=== PATIENT | male | born 1965 | race Caucasian/White ===

== ENCOUNTER → 2019-10-22 08:49 | Outpatient (BNVA) | payer OTHER, SELFPAY | PROVIDERS: Family Provider Nurse Practitioner; PCP Nurse Practitioner; Visit Provider Nurse Practitioner Family | DX: E11.9 Type 2 diabetes mellitus without complications (principal); E03.9 Hypothyroidism, unspecified; E78.2 Mixed hyperlipidemia; I10 Essential (primary) hypertension; E78.5 Hyperlipidemia, unspecified | CPT/HCPCS: 80053; 80061; 83036; 84443; 85025 ==

== ENCOUNTER → 2020-04-25 16:31 | Outpatient (BNVA) | payer OTHER, SELFPAY | PROVIDERS: Family Provider Nurse Practitioner; PCP Nurse Practitioner; Visit Provider Nurse Practitioner Family | DX: Z11.59 Encounter for screening for other viral diseases (principal); J02.9 Acute pharyngitis, unspecified | CPT/HCPCS: 87071; 87635; 87880 ==

== ENCOUNTER 2020-04-28 11:31 | Emergency (ER) | payer OTHER, SELFPAY ==
[2020-04-28 11:42] VITALS: BP 137/89; PULSE 70; RESP 20; TEMP 37.1; O2SAT 92; BMI 35.9
--- NOTE | 2020-04-28 11:58 | XR_ITS ---
WS: [id number] Portable AP upright chest, 04/28/2020 Clinical Data: COVID+, hypoxia Comparison: None. Findings: There are patchy opacities throughout both lungs which may represent diffuse pneumonia. The heart is enlarged. The pulmonary vascularity is not increased. No pneumothorax is seen. No nodules, masses or effusions are present. XR/XR chest 1V portable [id number] Impression: 1. Diffuse patchy opacities which may represent diffuse pneumonia. 2. Cardiomegaly. 3. Recommend repeat chest x-ray in one to 2 days.
--- NOTE | 2020-04-28 12:12 | ED_ITS ---
HPI - SOB/Dyspnea General: Chief Complaint: Shortness of Breath/Dyspnea Stated Complaint: covid+/SOB Time Seen by Provider: 04/28/20 11:37 Source: patient Mode of arrival: ambulatory Limitations: no limitations History of Present Illness: MD elicited complaint: shortness of breath and cough Onset (ago): week(s) (1) Timing: constant and progressively worsening Severity: severe Exacerbating factors: nothing Relieving factors: nothing Associated symptoms: Reports chest congestion, cough, fever(s), myalgias and nausea; Deny chest pain, diaphoresis, dizziness, extremity pain, hemoptysis, lightheadedness, orthopnea, palpitations, paresthesias, polydipsia, polyuria, rash, sense of impending doom or syncope Treatment prior to arrival: none Review of Systems General: Reports: 10 or more systems reviewed and unremarkable except in HPI and below Const: Reports: fever(s); Denies: diaphoresis Eyes: Denies: change in vision or blurry vision ENMT: Denies: throat pain, enlarged tonsils, odynophagia, hoarseness, mouth pain or swelling of lips/tongue Card: Denies: chest pain, palpitations, lightheadedness, syncope or orthopnea Resp: Reports: chest congestion; Denies: hemoptysis GI: Reports: nausea : Denies: flank pain, dysuria, urinary frequency, urinary urgency or urinary hesitancy Musc: Denies: extremity pain Skin/Breast: Denies: rash, pruritus or erythema Neuro: Denies: dizziness Endo: Denies: polyuria or polydipsia PFS ED PFSH: Medical History Diabetes Hyperlipidemia Hypertension Hypothyroidism (acquired) Surgical History Hx of cholecystectomy 2006 Social History Smoking and tobacco status: never smoked Alcohol intake: never Lives independently: Yes Housing: House Marital status: Single History of recent travel: No Physical Exam Const: COMMON NORMALS: no acute distress, average body habitus, patient oriented x3, no limitations, healthy appearing, alert and well nourished Neck/C-Spine: COMMON NORMALS: no meningeal signs and no JVD Resp: COMMON NORMALS: No retractions and clear to auscultation bilaterally EFFORT & INSPECTION: Yes respiratory distress (mild) and Yes labored AUSCULTATION: clear to auscultation bilaterally Cardio: COMMON NORMALS: no JVD, regular rate, regular rhythm, S1 normal heart sound present, S2 normal heart sound present, No gallops present (Cardio), No clicks present (Cardio), No murmurs present (Cardio), No rub (Cardio) and Peripheral pulses 2+ throughout RATE: regular rate RHYTHM: regular rhythm HEART SOUNDS: S1 normal heart sound present and S2 normal heart sound present PERIPHERAL PULSES: Peripheral pulses 2+ throughout GI: COMMON NORMALS: Normal to inspection, nondistended, normoactive bowel sounds present, Soft to palpation, non-tender, No hepatosplenomegaly present, no masses and no bruits PALPATION: Yes Soft to palpation and Yes No hepatosplenomegaly present Extremity: COMMON NORMALS: normal to inspection, full ROM, capillary refill normal, no calf tenderness and no pedal edema Neuro: COMMON NORMALS: patient oriented x3 SENSORIUM/ORIENTATION: Yes alert MENINGEAL SIGNS: Yes no meningeal signs Skin: COMMON NORMALS: no rashes or lesions noted, no wounds, turgor normal, no jaundice, no petechiae and no mottling GENERAL SKIN EXAM: no rashes or lesions noted and turgor normal Course Reevaluation(s): Reevaluation #1: Discussed patient's lab and imaging findings with him. Discussed especially that he is hypoxic and therefore needs to be admitted to the hospital. Explained that our viral ICU is full and cannot take any more patients, same with the hospitals in [place]. The nearest hospital.contact COVID patient is in [place]. We will therefore transfer him there. He voiced understanding and is in agreement with the plan. He was given a loading dose of Remdesivir as well as intravenous dexamethasone in the emergency department before he leaves. Time: 14:20 Consultations: Consultation #1: Discussed with sheree Rebolledo spitalist at [facility]. He kindly accepted patient to his service. Time: 14:26 Vital Signs: Vital signs: Vital Signs Temperature 98.7 F 04/28/20 11:42 Pulse Rate 70 04/28/20 14:55 Respiratory Rate 20 H 04/28/20 14:55 Blood Pressure 152/98 04/28/20 14:55 Pulse Oximetry 94 04/28/20 14:55 MDM - SOB/Dyspnea MDM Narrative: Medical decision making narrative: Patient with pneumonia secondary to COVID-19. He also has acute respiratory failure and needs oxygen supplementation to maintain his saturations in the low 90s. Because he is hypoxic he is transferred to [facility] as that is the nearest facility that can admit COVID patients. He was given a dose of intravenous dexamethasone and a loading dose of Remdesivir. Medical Records: Attestation: I reviewed the patient's medical records. Lab Data: Attestation: I reviewed the patient's lab results. Labs: Lab Results 04/28/20 04/28/20 04/28/20 Range/Units 12:50 12:50 12:50 WBC 7.3 (4.0-10.0) 10^3/ uL RBC 5.49 H (4.1-5.3) 10^6/u L Hgb 15.8 (11.7-16.6) g/dL Hct 47.4 (42.0-52.0) % MCV 86.3 (80-94) fL MCH 28.8 (28.0-34.0) pg MCHC 33.3 (30.0-36.0) g/dL RDW 12.5 (12.1-15.1) % Plt Count 242 (130-400) 10^3/c mm MPV 9.4 (7.4-10.4) fL Neut % (Auto) 75.2 % Lymph % (Auto) 17.6 % [place] % (Auto) 6.4 % Eos % (Auto) 0.0 % Baso % (Auto) 0.3 % Neut # (Auto) 5.49 (1.8-7.7) 10^3/u L Lymph # (Auto) 1.3 (0.8-4.8) 10^3/u L [place] # (Auto) 0.5 (0.2-0.9) 10^3/u L Eos # (Auto) 0.0 (0.0-0.8) 10^3/u L Baso # (Auto) 0.0 (0.0-0.1) 10^3/u L Nucleated RBC % (a uto) 0 % Nucleated RBCs # 0.0 /100WBC PT 11.70 L (12.1-14.9) SECO NDS INR 0.84 (0.8-1.2) Fibrinogen 510 H (174-498) mg/dL D-Dimer 0.61 H (0-0.59) ug/mIFE U Sodium 134 L (136-145) mmol/L Potassium 4.3 (3.5-5.1) mmol/L Chloride 100 (98-107) mmol/L Carbon Dioxide 21 L (22-29) mmol/L Anion Gap 17.3 (5-19) BUN 16 (6-20) mg/dL Creatinine 0.9 (0.7-1.2) mg/dL GFR Calculation 87.6 L (90-130) mL/min Glucose 180 H (65-115) mg/dL Calculated Osmolal ity 284 L (285-295) mOsm/k g Lactic Acid (0.5-2.2) mmol/L Calcium 8.9 (8.5-10.5) mg/dL Ferritin 1604 H (30-400) ng/mL Total Bilirubin 0.3 (0.15-1.2) mg/dL AST 68 H (0-40) U/L ALT 82 H (0-41) U/L Alkaline Phosphata se 102 (40-130) IU/L C-Reactive Protein 90.0 H (0.0-4.9) mg/L NT-Pro-B Natriuret Pep 9 (0-125) pg/mL Total Protein 7.2 (6.6-8.7) g/dL Albumin 3.7 (3.5-5.2) g/dL Globulin 3.5 (1.3-4.6) g/dL 04/28/20 Range/Units 12:50 WBC (4.0-10.0) 10^3/ uL RBC (4.1-5.3) 10^6/u L Hgb (11.7-16.6) g/dL Hct (42.0-52.0) % MCV (80-94) fL MCH (28.0-34.0) pg MCHC (30.0-36.0) g/dL RDW (12.1-15.1) % Plt Count (130-400) 10^3/c mm MPV (7.4-10.4) fL Neut % (Auto) % Lymph % (Auto) % [place] % (Auto) % Eos % (Auto) % Baso % (Auto) % Neut # (Auto) (1.8-7.7) 10^3/u L Lymph # (Auto) (0.8-4.8) 10^3/u L [place] # (Auto) (0.2-0.9) 10^3/u L Eos # (Auto) (0.0-0.8) 10^3/u L Baso # (Auto) (0.0-0.1) 10^3/u L Nucleated RBC % (a uto) % Nucleated RBCs # /100WBC PT (12.1-14.9) SECO NDS INR (0.8-1.2) Fibrinogen (174-498) mg/dL D-Dimer (0-0.59) ug/mIFE U Sodium (136-145) mmol/L Potassium (3.5-5.1) mmol/L Chloride (98-107) mmol/L Carbon Dioxide (22-29) mmol/L Anion Gap (5-19) BUN (6-20) mg/dL Creatinine (0.7-1.2) mg/dL GFR Calculation (90-130) mL/min Glucose (65-115) mg/dL Calculated Osmolal ity (285-295) mOsm/k g Lactic Acid 2.0 (0.5-2.2) mmol/L Calcium (8.5-10.5) mg/dL Ferritin (30-400) ng/mL Total Bilirubin (0.15-1.2) mg/dL AST (0-40) U/L ALT (0-41) U/L Alkaline Phosphata se (40-130) IU/L C-Reactive Protein (0.0-4.9) mg/L NT-Pro-B Natriuret Pep (0-125) pg/mL Total Protein (6.6-8.7) g/dL Albumin (3.5-5.2) g/dL Globulin (1.3-4.6) g/dL Imaging Data^: CXR: Radiologist's impression: [facility] [address] [place] [address] XRay Report Signed Patient: Rocky Bui #: [id number] : 1965Acct#:[id number] Age/Sex: 55 / MADM Date: 04/28/20 Loc: ERRoom/Bed: Attending Dr: Ordering Provider/Ordering MD: Eusebio Bright MD, [facility] Date of Service: 04/28/20 Procedure(s): XR chest 1V portable [id number] Accession Number(s): [id number] Report Number: [id number] WS: [id number] Portable AP upright chest, 04/28/2020 Clinical Data: COVID+, hypoxia Comparison: None. Findings: There are patchy opacities throughout both lungs which may represent diffuse pneumonia. The heart is enlarged. The pulmonary vascularity is not increased. No pneumothorax is seen. No nodules, masses or effusions are present. XR/XR chest 1V portable [id number] Impression: 1. Diffuse patchy opacities which may represent diffuse pneumonia. 2. Cardiomegaly. 3. Recommend repeat chest x-ray in one to 2 days. Dictated By:Taisha Martines MD Signed By:Taisha Martines MDSigned Date/Time:04/28/20 1229 DD/ 1227 Discharge Plan Discharge Patient Disposition: Xfer Short-Term Hosp Clinical Impression: Pneumonia due to 2019 novel coronavirus, Acute hypoxemic respiratory failure Condition: Stable Discharge Orders: Transfer Out of Facility (Order); Ordered 04/28/20 Ordered By: Eusebio Bright Referrals: Ulysses Morataya FNP-C [Primary Care Provider] - Discharge Date/Time: 04/28/20 16:25 Coding Level of Care Code ED Carpet Installer Helper for Chg Fwd Exam Detailed
[2020-04-28] MEDS: dexamethasone 4 mg/mL INJ 6 MG IVP (12:45)
[2020-04-28 13:05] LABS: Basophils % 0.3 %; Hematocrit 47.4 % (42.0-52.0); Hemoglobin 15.8 g/dL (11.7-16.6); Lymphocytes # 1.3 10^3/uL (0.8-4.8); Lymphocytes % 17.6 %; Mean Corpuscular HGB Conc 33.3 g/dL (30.0-36.0); Mean Corpuscular Hemoglobin 28.8 pg (28.0-34.0); Mean Corpuscular Volume 86.3 fL (80-94); Mean Platelet Volume 9.4 fL (7.4-10.4); Monocytes # 0.5 10^3/uL (0.2-0.9); Monocytes % 6.4 %; Neutrophils # 5.49 10^3/uL (1.8-7.7); Neutrophils % 75.2 %; Nucleated Red Blood Cells % 0 %; Platelet Count 242 10^3/cmm (130-400); Red Blood Count 5.49 10^6/uL (4.1-5.3); Red Cell Distribution Width 12.5 % (12.1-15.1); White Blood Count 7.3 10^3/uL (4.0-10.0)
[2020-04-28 13:26] LABS: INR 0.84 (0.8-1.2)
[2020-04-28 13:27] LABS: Fibrinogen 510 mg/dL (174-498)
[2020-04-28 13:29] LABS: D Dimer 0.61 ug/mIFEU (0-0.59)
[2020-04-28 13:38] LABS: Alanine Aminotransferase 82 U/L (0-41); Albumin Level 3.7 g/dL (3.5-5.2); Alkaline Phosphatase 102 IU/L (40-130); Aspartate Amino Transferase 68 U/L (0-40); Blood Urea Nitrogen 16 mg/dL (6-20); Calcium 8.9 mg/dL (8.5-10.5); Carbon Dioxide 21 mmol/L (22-29); Chloride 100 mmol/L (98-107); Globulin 3.5 g/dL (1.3-4.6); Glomerular Filtration Rate 87.6 mL/min (90-130); Glucose 180 mg/dL (65-115); NT Pro B Type Natriuretic Pept 9 pg/mL (0-125); Osmolality Calculated 284 mOsm/kg (285-295); Sodium 134 mmol/L (136-145); Total Bilirubin 0.3 mg/dL (0.15-1.2); Total Protein 7.2 g/dL (6.6-8.7)
[2020-04-28 13:40] LABS: Anion Gap 17.3 (5-19); Potassium 4.3 mmol/L (3.5-5.1)
[2020-04-28 13:50] LABS: Ferritin 1604 ng/mL (30-400)
[2020-04-28 14:30] VITALS: BP 152/98; PULSE 70; RESP 20; O2SAT 91
[2020-04-28 14:55] VITALS: BP 152/98; PULSE 70; RESP 20; O2SAT 94
== END 2020-04-28 16:25 | disposition short-term general hospital (02) ==
PROVIDERS: Emergency Provider Family Medicine; PCP Nurse Practitioner
DX: U07.1 COVID-19 (principal); J12.89 Other viral pneumonia; J96.01 Acute respiratory failure with hypoxia; E11.9 Type 2 diabetes mellitus without complications; E78.5 Hyperlipidemia, unspecified; I10 Essential (primary) hypertension
CPT/HCPCS: 12345; 71045; 80053; 82728; 83605; 83880; 85025; 85378; 85384; 85610; 86140; 87040; 96365; 96375; 99282; 99285; J1100

== ENCOUNTER 2020-05-06 17:51 | Emergency (ER) | payer OTHER, SELFPAY ==
[2020-05-06 17:59] VITALS: BP 142/96; PULSE 72; RESP 18; TEMP 36.7; O2SAT 95; BMI 35.9
--- NOTE | 2020-05-06 18:32 | ED_ITS ---
HPI - Psych General: Chief Complaint: Psychiatric Symptoms Stated Complaint: PSYCH Time Seen by Provider: 05/06/20 18:29 History of Present Illness: HPI Narrative: 55y/o male presents after being discharged from the COVID unit at [facility] yesterday. He presents today essentially with no complaints. He states that his sister called an ambulance, although he is unsure why. He tells me where he is, the date, and time. He says that he is feeling much better than he was when he was in the hospital. He can tell me date, place, time, and situation. He knows who picked him up in the ambulance. He then tells me about his sister, who called the ambulance. He states that she was upset. He states that he had told her about his situation, and that she had met a friend of his from a lot of years back. He had also told her about NERHerb, and Addison whom he had met in a video game. He believes she is real, his sister did not believe she was real. He states this seemed to upset her. complaint: altered mental status and other Review of Systems Const: Denies: fever(s) or chills Eyes: Denies: change in vision ENMT: Denies: odynophagia, swelling of lips/tongue or sinus pain Card: Denies: chest pain, palpitations or irregular heart rhythm Resp: Denies: dyspnea, productive cough, non-productive cough or wheezing GI: Denies: abdominal pain, nausea or vomiting : Denies: difficulty urinating, dysuria or hematuria Musc: Denies: neck pain or joint warmth Skin/Breast: Denies: rash, pruritus or erythema Neuro: Denies: headache(s), dizziness, vertigo, confusion or seizure-like activity Psych: Denies: anxiety PFS ED PFSH: Medical History (Updated 05/06/20 @ 19:08 by Kevin Ko DO) Diabetes Hyperlipidemia Hypertension Hypothyroidism (acquired) Surgical History Hx of cholecystectomy 2006 Social History Smoking and tobacco status: never smoked Alcohol intake: never Lives independently: Yes Housing: House Marital status: Single History of recent travel: No Physical Exam Const: GENERAL APPEARANCE: well developed ORIENTATION/CONSCIOUSNESS: Yes oriented to person, Yes oriented to place and Yes oriented to time HENMT: COMMON NORMALS: normocephalic and external ears normal HEAD & SCALP: normocephalic FACE & SINUS: normal facial exam NOSE: No nasal discharge present EXTERNAL EAR: Yes external ears normal MOUTH: tongue normal TEETH & GINGIVA: no abnormal tooth and associated gingiva THROAT: posterior oropharynx normal; no peritonsillar mass Eye: COMMON NORMALS: Equal, round and reactive pupils present, EOMs intact bilaterally and conjunctivae normal EYELID: eyelids normal CONJUNCTIVA: Yes conjunctivae normal PUPIL: Yes Equal, round and reactive pupils present Neck/C-Spine: GENERAL: No tracheal deviation Chest: COMMONS NORMALS: normal inspection of the chest CHEST: No tenderness Resp: COMMON NORMALS: clear to auscultation bilaterally EFFORT & INSPECTION: No tachypneic, No respiratory distress, No retractions, No uses accessory muscles and No tracheal deviation AUSCULTATION: clear to auscultation bilaterally, no rhonchi, no wheezes and lung sounds not diminished Cardio: COMMON NORMALS: regular rate and regular rhythm RATE: regular rate RHYTHM: regular rhythm HEART SOUNDS: no murmurs PERIPHERAL PULSES: radial pulses present GI: INSPECTION: No abdominal distension AUSCULTATION: No Hyperactive bowel sounds present and No Hypoactive bowel sounds present PALPATION: No Guarding due to palpation present (GI) and No Rigid due to palpation PERCUSSION: no dullness to percussion and no tympanic to percussion Neuro: SENSORIUM/ORIENTATION: Yes oriented to person, Yes oriented to place and Yes oriented to time Psych: COMMON NORMALS: Normal thought process present, cooperative, normal affect and speech normal APPEARANCE: Yes grossly normal ATTITUDE: Yes calm and Yes engaged ACTIVITY/MOTOR BEHAVIOR: Yes appropriate eye contact SPEECH: Yes normal speech MOOD & AFFECT: Yes euthymic mood THOUGHT PROCESS: Normal thought process present THOUGHT CONTENT: Yes Hallucination(s) present auditory ATTENTION/CONCENTRATION: Yes attention grossly intact and Yes concentration grossly intact MEMORY/COGNITION: Yes memory grossly intact and Yes cognition grossly intact INSIGHT: Limited insight present (Psych) JUDGEMENT: Fair judgement present (Psych) Skin: COMMON NORMALS: no rashes or lesions noted GENERAL SKIN EXAM: no rashes or lesions noted MDM - Psych MDM Narrative: Medical decision making narrative: This patient essentially has a normal exam medically. He clearly has both hallucinations, and some delusional content. He however is not homicidal or suicidal he does not present a clear danger to himself at this point. After being examined, he asked the nursing staff if he could go. His nurse tried to convince him to stay, for potential treatment. He said that he would rather go home. The nurse urged him that if his symptoms became worse, or if he became concerned to return to the ER quickly. He signed an AGAINST MEDICAL ADVICE form and left. Discharge Plan Discharge Patient Disposition: Left Against Medical Advice Clinical Impression: Acute psychosis Condition: Stable Prescriptions: No Action levothyroxine 50 mcg capsule 50 mcg PO DAILY 30 Days Qty: 30 RF: 5 losartan 50 mg tablet 50 mg PO DAILY 30 Days Qty: 30 RF: 5 metformin 500 mg tablet extended release 24 hr 1,000 mg PO DAILY 30 Days Qty: 60 RF: 5 atorvastatin 20 mg tablet 20 mg PO DAILY 30 Days Qty: 30 RF: 5 Referrals: Ulysses Morataya FNP-C [Primary Care Provider] - Discharge Date/Time: 05/06/20 19:09 Coding Level of Care Code ED Software Test Analyst for Kavin Cruz
--- NOTE | 2020-05-06 19:04 | PC.NURSE ---
Pt attempted to leave and said he wanted to go home. Dr Ko notified pt has GCS of 15 and and A&O x4. Pt was given AMA form to sign and advised that he needed to stay for evaluation. Pt states he is going home that he will come back if he feels worse or his thought process changes.
[2020-05-06 19:07] VITALS: RESP 18; O2SAT 98
== END 2020-05-06 19:09 | disposition left against medical advice (07) ==
PROVIDERS: Emergency Provider Emergency Medicine; PCP Nurse Practitioner
DX: F23 Brief psychotic disorder (principal); Z53.21 Procedure and treatment not carried out due to patient leaving prior to being seen by health care provider; E11.9 Type 2 diabetes mellitus without complications; I10 Essential (primary) hypertension; E78.5 Hyperlipidemia, unspecified; Z79.84 Long term (current) use of oral hypoglycemic drugs
CPT/HCPCS: 12345; 99284

== ENCOUNTER 2020-05-07 09:18 | Emergency (ER) | payer OTHER, SELFPAY ==
[2020-05-07 09:21] VITALS: BP 156/96; PULSE 92; RESP 18; TEMP 36.7; O2SAT 93; BMI 35.9
--- NOTE | 2020-05-07 09:40 | XRR_ITS ---
PROCEDURE INFORMATION: Exam: XR Chest, 1 View Exam date and time: 05/07/2020 9:41 AM Age: 55 years old Clinical indication: Shortness of breath; Additional info: Recent covid TECHNIQUE: Imaging protocol: XR of the chest Views: 1 view. COMPARISON: CR XR chest 1V portable [id number] 04/28/2020 12:20 PM FINDINGS: Lungs: Low lung volumes. Diffusely increased interstitial markings, but with overall improved aeration in comparison to April 28. No focal consolidation. Pleural space: Unremarkable. No evidence of pleural effusion or pneumothorax. Heart/Mediastinum: Unremarkable. No cardiomegaly. Bones/joints: Unremarkable. XR/XR chest 1V portable [id number] IMPRESSION: Nonspecific mild diffuse increased interstitial markings, but with overall improvement in comparison to April 28. No lobar consolidation.
--- NOTE | 2020-05-07 09:40 | CTR_ITS ---
PROCEDURE INFORMATION: Exam: CT Head Without Contrast Exam date and time: 05/07/2020 9:41 AM Age: 55 years old Clinical indication: Altered mental status/memory loss TECHNIQUE: Imaging protocol: Computed tomography of the head without contrast. Radiation optimization: All CT scans at this facility use at least one of these dose optimization techniques: automated exposure control; mA and/or kV adjustment per patient size (includes targeted exams where dose is matched to clinical indication); or iterative reconstruction. COMPARISON: No relevant prior studies available. RADIATION DOSE METRICS: Total DLP (mGy-cm): 790.1 FINDINGS: Brain: No intracranial hemorrhage. Normal osborne white differentiation. No evidence of edema or territorial infarct. No abnormal mass effect or midline shift. No extra-axial fluid collection. Cerebral ventricles: No ventriculomegaly. Bones/joints: No acute fracture. Paranasal sinuses: Visualized sinuses are unremarkable. No fluid levels. Mastoid air cells: Visualized mastoid air cells are well aerated. Soft tissues: Unremarkable. CT/CT head wo con* [id number] IMPRESSION: No acute intracranial abnormality. Radiation Dose CTDIVOL = (mGy): DLP = 790.1 (mGy-cm)
--- NOTE | 2020-05-07 09:45 | W.ED.PSYCH ---
HPI - Psych General: Chief Complaint: Psychiatric Symptoms Stated Complaint: INCOHERENT Time Seen by Provider: 05/07/20 09:32 Source: patient and family Mode of arrival: ambulatory Limitations: no limitations History of Present Illness: HPI Narrative: 55-year-old male patient presents to the emergency department with sister. Sister states patient started acting weird not making sense saying that he wants to hurt himself thought process is all over the place. Patient states he has never been like this before does not have any past medical history of behavioral health issues. Patient does not take any medications for any behavioral health issues. Patient states patient was released from [facility] was in there for a week on oxygen due to COVID. Sister states while patient was there he was also diabetic diagnosed with diabetes. Whenever I ask questions to patient he just says nope nope nope Associated symptoms: Deny delusions Review of Systems General: Reports: 10 or more systems reviewed and unremarkable except in HPI and below, ROS unobtainable due to medical condition and ROS unobtainable due to mental status PFS ED PFSH: Medical History Diabetes Hyperlipidemia Hypertension Hypothyroidism (acquired) Surgical History Hx of cholecystectomy 2006 Social History Smoking and tobacco status: never smoked Alcohol intake: never Lives independently: Yes Housing: House Marital status: Single History of recent travel: No Physical Exam Const: COMMON NORMALS: no acute distress, average body habitus, alert and well nourished EXAM LIMITATIONS: altered mental status and behavioral limitations ORIENTATION/CONSCIOUSNESS: Yes confused HENMT: COMMON NORMALS: normocephalic, atraumatic, hearing grossly normal bilaterally, external ears normal, EAC's normal, TM's normal bilaterally, Normal external nose present, Normal nasal mucous membranes and turbinates present, moist oral mucous membranes, oropharynx normal, dentition normal and gingiva normal HEAD & SCALP: normocephalic and atraumatic NOSE: Normal external nose present and Normal nasal mucous membranes and turbinates present EXTERNAL EAR: Yes external ears normal EXTERNAL AUDITORY CANAL: EAC's normal TYMPANIC MEMBRANE: TM's normal bilaterally Eye: COMMON NORMALS: Equal, round and reactive pupils present, EOMs intact bilaterally, conjunctivae normal, no scleral icterus, no papilledema, normal visual buitrago by confrontation and fundi normal bilaterally CONJUNCTIVA: Yes conjunctivae normal PUPIL: Yes Equal, round and reactive pupils present DIRECT OPHTHALMOSCOPY: Yes no papilledema and Yes fundi normal bilaterally Neck/C-Spine: COMMON NORMALS: full ROM, no lymphadenopathy, supple, no meningeal signs, no JVD, Thyroid normal and No carotid bruits THYROID: Thyroid normal Chest: COMMONS NORMALS: normal inspection of the chest, normal palpation of entire chest wall, normal inspection of the breasts and normal palpation of the breasts Resp: COMMON NORMALS: normal respiratory effort, No retractions, No use of accessory muscles, clear to auscultation bilaterally and percussion normal AUSCULTATION: clear to auscultation bilaterally and diminished lung sounds PERCUSSION: percussion normal Cardio: COMMON NORMALS: no JVD, regular rate and regular rhythm RATE: regular rate RHYTHM: regular rhythm GI: COMMON NORMALS: Normal to inspection, nondistended, normoactive bowel sounds present, Soft to palpation, non-tender, No hepatosplenomegaly present, no masses and no bruits PALPATION: Yes Soft to palpation and Yes No hepatosplenomegaly present : COMMON NORMALS: Yes no CVA tenderness BLADDER/KIDNEY EXAM: Yes no CVA tenderness Back/Pelvis: COMMON NORMALS: no CVA tenderness, thoracic and lumbar spine normal to inspection, no thoracic nor lumbar tenderness, thoraco-lumbar ROM normal and straight leg raise negative bilaterally Extremity: COMMON NORMALS: normal to inspection, full ROM, capillary refill normal, no joint enlargement, no clubbing, cyanosis or edema, no calf tenderness and no pedal edema Neuro: COMMON NORMALS: CN's II-XII intact bilaterally, moves all extremities, no focal motor deficits and no sensory deficits noted SENSORIUM/ORIENTATION: Yes alert and Yes Orientation impaired MENINGEAL SIGNS: Yes no meningeal signs Psych: COMMON NORMALS: cooperative and speech normal; negative for Normal thought process present, negative for normal affect and negative for denies suicidal ideation ATTITUDE: Yes bizarre and Yes agitated ACTIVITY/MOTOR BEHAVIOR: No appropriate eye contact, Yes disorganized behavior and Yes Avoids eye contact (attititude/behavior) SPEECH: Yes normal speech and Yes slow MOOD & AFFECT: Yes elevated mood THOUGHT PROCESS: abnormal, disorganized, confused, Flight of ideas present, Illogical thought process present and Word salad present (speech) THOUGHT CONTENT: No Normal thought content present, Yes Suicidality present, No Homicidality present, No Phobia(s) present, No delusions and No Hallucination(s) present INSIGHT: questionable JUDGEMENT: questionable MDM - Psych MDM Narrative: Medical decision making narrative: 55-year-old male patient presents to the emergency department with sister. Sister states patient started acting weird not making sense saying that he wants to hurt himself thought process is all over the place. Patient states he has never been like this before does not have any past medical history of behavioral health issues. Patient does not take any medications for any behavioral health issues. Patient states patient was released from [facility] was in there for a week on oxygen due to COVID. Sister states while patient was there he was also diabetic diagnosed with diabetes. Whenever I ask questions to patient he just says nope nope nope Pt presents confused and saying things that dont make sense. Does not answer my questions. Ct head negative for any acute findings CAT chest reveals bilateral lower lobe infiltrates. Pt pulse ox is 91-93 on RA lungs are diminished lower bases elevated WBC. Given these findings I will start him on antibiotics at this time. Pt does have an elevated lactic acid. I will plan on admitting patient to medical at this time with a consult to psych Differential Diagnosis: Psych Differential Diagnosis: Likely acute psychosis, chronic schizophrenia, suicidal ideation, depression and drug-induced psychotic disorder Lab Data: Labs: Lab Results 05/07/20 05/07/20 05/07/20 Range/Units 09:54 09:54 09:54 WBC 14.7 H (4.0-10.0) 10^3/ uL RBC 5.73 H (4.1-5.3) 10^6/u L Hgb 16.2 (11.7-16.6) g/dL Hct 49.0 (42.0-52.0) % MCV 85.5 (80-94) fL MCH 28.3 (28.0-34.0) pg MCHC 33.1 (30.0-36.0) g/dL RDW 12.4 (12.1-15.1) % Plt Count 441 H (130-400) 10^3/c mm MPV 8.8 (7.4-10.4) fL Neut % (Auto) 69.5 % Lymph % (Auto) 15.4 % [place] % (Auto) 8.5 % Eos % (Auto) 0.4 % Baso % (Auto) 0.3 % Neut # (Auto) 10.19 H (1.8-7.7) 10^3/u L Lymph # (Auto) 2.3 (0.8-4.8) 10^3/u L [place] # (Auto) 1.2 H (0.2-0.9) 10^3/u L Eos # (Auto) 0.1 (0.0-0.8) 10^3/u L Baso # (Auto) 0.0 (0.0-0.1) 10^3/u L Nucleated RBC % (a uto) 0 % Nucleated RBCs # 0.0 /100WBC ESR 5 (0-10) mm/hr Sodium 133 L (136-145) mmol/L Potassium 4.2 (3.5-5.1) mmol/L Chloride 100 (98-107) mmol/L Carbon Dioxide 23 (22-29) mmol/L Anion Gap 14.2 (5-19) BUN 27 H (6-20) mg/dL Creatinine 1.0 (0.7-1.2) mg/dL GFR Calculation 77.6 L (90-130) mL/min Glucose 174 H (65-115) mg/dL Calculated Osmolal ity 285 (285-295) mOsm/k g Lactate (0.5-2.2) mmol/L Calcium 9.2 (8.5-10.5) mg/dL Ferritin (30-400) ng/mL Total Bilirubin 0.6 (0.15-1.2) mg/dL AST 34 (0-40) U/L ALT 92 H (0-41) U/L Alkaline Phosphata se 113 (40-130) IU/L Lactate Dehydrogen ase (135-225) U/L C-Reactive Protein (0.0-4.9) mg/L Total Protein 6.4 L (6.6-8.7) g/dL Albumin 3.7 (3.5-5.2) g/dL Globulin 2.7 (1.3-4.6) g/dL Urine Color (Yellow) Urine Appearance (CLEAR) Urine pH (5-7) Ur Specific Gravit y (1.005-1.030) Urine Protein (Negative) Urine Glucose (UA) (Normal) Urine Ketones (Negative) Urine Blood (Negative) Urine Nitrate (Negative) Urine Bilirubin (Negative) Urine Urobilinogen (Negative) mg/dL Ur Leukocyte Marielos ase (Negative) Salicylates < 0.3 L (3-10) mg/dL Urine Opiates Scre en (Negative) ng/mL Acetaminophen < 5.0 L (10-30) ug/mL Ur Barbiturates Sc reen (Negative) ng/mL Ur Phencyclidine S crn (Negative) ng/mL Ur Amphetamines Sc reen (Negative) ng/mL U Benzodiazepines Scrn (Negative) ng/mL Urine Cocaine Scre en (Negative) ng/mL U Marijuana (THC) Screen (Negative) ng/mL Ethyl Alcohol < 10 (0-10) mg/dL 05/07/20 05/07/20 05/07/20 Range/Units 09:54 10:32 10:32 WBC (4.0-10.0) 10^3/ uL RBC (4.1-5.3) 10^6/u L Hgb (11.7-16.6) g/dL Hct (42.0-52.0) % MCV (80-94) fL MCH (28.0-34.0) pg MCHC (30.0-36.0) g/dL RDW (12.1-15.1) % Plt Count (130-400) 10^3/c mm MPV (7.4-10.4) fL Neut % (Auto) % Lymph % (Auto) % [place] % (Auto) % Eos % (Auto) % Baso % (Auto) % Neut # (Auto) (1.8-7.7) 10^3/u L Lymph # (Auto) (0.8-4.8) 10^3/u L [place] # (Auto) (0.2-0.9) 10^3/u L Eos # (Auto) (0.0-0.8) 10^3/u L Baso # (Auto) (0.0-0.1) 10^3/u L Nucleated RBC % (a uto) % Nucleated RBCs # /100WBC ESR (0-10) mm/hr Sodium (136-145) mmol/L Potassium (3.5-5.1) mmol/L Chloride (98-107) mmol/L Carbon Dioxide (22-29) mmol/L Anion Gap (5-19) BUN (6-20) mg/dL Creatinine (0.7-1.2) mg/dL GFR Calculation (90-130) mL/min Glucose (65-115) mg/dL Calculated Osmolal ity (285-295) mOsm/k g Lactate (0.5-2.2) mmol/L Calcium (8.5-10.5) mg/dL Ferritin 1362 H (30-400) ng/mL Total Bilirubin (0.15-1.2) mg/dL AST (0-40) U/L ALT (0-41) U/L Alkaline Phosphata se (40-130) IU/L Lactate Dehydrogen ase 313 H (135-225) U/L C-Reactive Protein 1.4 (0.0-4.9) mg/L Total Protein (6.6-8.7) g/dL Albumin (3.5-5.2) g/dL Globulin (1.3-4.6) g/dL Urine Color Yellow (Yellow) Urine Appearance Clear (CLEAR) Urine pH 5 (5-7) Ur Specific Gravit y 1.025 (1.005-1.030) Urine Protein Neg (Negative) Urine Glucose (UA) Norm (Normal) Urine Ketones Negative (Negative) Urine Blood Neg (Negative) Urine Nitrate Negative (Negative) Urine Bilirubin Neg (Negative) Urine Urobilinogen Norm (Negative) mg/dL Ur Leukocyte Marielos ase Negative (Negative) Salicylates (3-10) mg/dL Urine Opiates Scre en Negative (Negative) ng/mL Acetaminophen (10-30) ug/mL Ur Barbiturates Sc reen Negative (Negative) ng/mL Ur Phencyclidine S crn Negative (Negative) ng/mL Ur Amphetamines Sc reen Negative (Negative) ng/mL U Benzodiazepines Scrn Negative (Negative) ng/mL Urine Cocaine Scre en Negative (Negative) ng/mL U Marijuana (THC) Screen Negative (Negative) ng/mL Ethyl Alcohol (0-10) mg/dL 05/07/20 Range/Units 10:52 WBC (4.0-10.0) 10^3/ uL RBC (4.1-5.3) 10^6/u L Hgb (11.7-16.6) g/dL Hct (42.0-52.0) % MCV (80-94) fL MCH (28.0-34.0) pg MCHC (30.0-36.0) g/dL RDW (12.1-15.1) % Plt Count (130-400) 10^3/c mm MPV (7.4-10.4) fL Neut % (Auto) % Lymph % (Auto) % [place] % (Auto) % Eos % (Auto) % Baso % (Auto) % Neut # (Auto) (1.8-7.7) 10^3/u L Lymph # (Auto) (0.8-4.8) 10^3/u L [place] # (Auto) (0.2-0.9) 10^3/u L Eos # (Auto) (0.0-0.8) 10^3/u L Baso # (Auto) (0.0-0.1) 10^3/u L Nucleated RBC % (a uto) % Nucleated RBCs # /100WBC ESR (0-10) mm/hr Sodium (136-145) mmol/L Potassium (3.5-5.1) mmol/L Chloride (98-107) mmol/L Carbon Dioxide (22-29) mmol/L Anion Gap (5-19) BUN (6-20) mg/dL Creatinine (0.7-1.2) mg/dL GFR Calculation (90-130) mL/min Glucose (65-115) mg/dL Calculated Osmolal ity (285-295) mOsm/k g Lactate 2.4 H (0.5-2.2) mmol/L Calcium (8.5-10.5) mg/dL Ferritin (30-400) ng/mL Total Bilirubin (0.15-1.2) mg/dL AST (0-40) U/L ALT (0-41) U/L Alkaline Phosphata se (40-130) IU/L Lactate Dehydrogen ase (135-225) U/L C-Reactive Protein (0.0-4.9) mg/L Total Protein (6.6-8.7) g/dL Albumin (3.5-5.2) g/dL Globulin (1.3-4.6) g/dL Urine Color (Yellow) Urine Appearance (CLEAR) Urine pH (5-7) Ur Specific Gravit y (1.005-1.030) Urine Protein (Negative) Urine Glucose (UA) (Normal) Urine Ketones (Negative) Urine Blood (Negative) Urine Nitrate (Negative) Urine Bilirubin (Negative) Urine Urobilinogen (Negative) mg/dL Ur Leukocyte Marielos ase (Negative) Salicylates (3-10) mg/dL Urine Opiates Scre en (Negative) ng/mL Acetaminophen (10-30) ug/mL Ur Barbiturates Sc reen (Negative) ng/mL Ur Phencyclidine S crn (Negative) ng/mL Ur Amphetamines Sc reen (Negative) ng/mL U Benzodiazepines Scrn (Negative) ng/mL Urine Cocaine Scre en (Negative) ng/mL U Marijuana (THC) Screen (Negative) ng/mL Ethyl Alcohol (0-10) mg/dL Discharge Plan Discharge Prescriptions: No Action levothyroxine 50 mcg capsule 50 mcg PO DAILY 30 Days Qty: 30 RF: 5 losartan 50 mg tablet 50 mg PO DAILY 30 Days Qty: 30 RF: 5 metformin 500 mg tablet extended release 24 hr 1,000 mg PO DAILY 30 Days Qty: 60 RF: 5 atorvastatin 20 mg tablet 20 mg PO DAILY 30 Days Qty: 30 RF: 5 acetaminophen 500 mg tablet 500 mg PO Q6H PRN (Reason: PAIN/FEVER) RF: 0 dexamethasone 4 mg tablet 4 mg PO DAILY RF: 0 ClearLax 17 gram/dose powder See Rx Instructions .ROUTE .COMPLEX RF: 0 albuterol sulfate 90 mcg/actuation HFA aerosol inhaler 2 puff INHALATION Q1H RF: 0 fluticasone propionate 50 mcg/actuation spray,suspension See Rx Instructions .ROUTE .COMPLEX RF: 0 Levemir U-100 Insulin 100 unit/mL solution See Rx Instructions .ROUTE .COMPLEX RF: 0 Mucinex 600 mg tablet extended release 12hr 600 mg PO BID RF: 0 Coding Level of Care Code ED Safety Leader for Kavin Cruz
[2020-05-07 10:04] LABS: Basophils % 0.3 %; Eosinophils # 0.1 10^3/uL (0.0-0.8); Eosinophils % 0.4 %; Hemoglobin 16.2 g/dL (11.7-16.6); Lymphocytes # 2.3 10^3/uL (0.8-4.8); Lymphocytes % 15.4 %; Mean Corpuscular HGB Conc 33.1 g/dL (30.0-36.0); Mean Corpuscular Hemoglobin 28.3 pg (28.0-34.0); Mean Corpuscular Volume 85.5 fL (80-94); Mean Platelet Volume 8.8 fL (7.4-10.4); Monocytes # 1.2 10^3/uL (0.2-0.9); Monocytes % 8.5 %; Neutrophils # 10.19 10^3/uL (1.8-7.7); Neutrophils % 69.5 %; Nucleated Red Blood Cells % 0 %; Platelet Count 441 10^3/cmm (130-400); Red Blood Count 5.73 10^6/uL (4.1-5.3); Red Cell Distribution Width 12.4 % (12.1-15.1); White Blood Count 14.7 10^3/uL (4.0-10.0)
[2020-05-07 10:28] LABS: Slide Review Slide Review Perform
[2020-05-07 10:29] LABS: Alanine Aminotransferase 92 U/L (0-41); Albumin Level 3.7 g/dL (3.5-5.2); Alkaline Phosphatase 113 IU/L (40-130); Anion Gap 14.2 (5-19); Aspartate Amino Transferase 34 U/L (0-40); Blood Urea Nitrogen 27 mg/dL (6-20); Calcium 9.2 mg/dL (8.5-10.5); Carbon Dioxide 23 mmol/L (22-29); Chloride 100 mmol/L (98-107); Globulin 2.7 g/dL (1.3-4.6); Glomerular Filtration Rate 77.6 mL/min (90-130); Glucose 174 mg/dL (65-115); Osmolality Calculated 285 mOsm/kg (285-295); Potassium 4.2 mmol/L (3.5-5.1); Sodium 133 mmol/L (136-145); Total Bilirubin 0.6 mg/dL (0.15-1.2); Total Protein 6.4 g/dL (6.6-8.7)
[2020-05-07 10:30] LABS: Acetaminophen < 5.0 ug/mL (10-30); Alcohol Level < 10 mg/dL (0-10); Salicylate < 0.3 mg/dL (3-10)
[2020-05-07 10:39] LABS: Add Urine Microscopic? NO
[2020-05-07 10:47] LABS: Bilirubin Urine Neg (Negative); Blood Urine Neg (Negative); Glucose Urine UA Norm (Normal); Ketones Urine Negative (Negative); Leukocyte Esterase Urine Negative (Negative); Nitrate Urine Negative (Negative); Protein Urine Neg (Negative); Specific Gravity, Urine 1.025 (1.005-1.030); Urine Appearance Clear (CLEAR); Urine Color Yellow (Yellow); Urobilinogen Urine Norm (Negative); pH Urine 5 (5-7)
[2020-05-07 10:58] LABS: Amphetamines Screen Urine Negative (Negative); Barbiturates Screen Urine Negative (Negative); Benzodiazepines Screen Urine Negative (Negative); Cocaine Screen Urine Negative (Negative); Opiate Screen Urine Negative (Negative); PCP Screen Urine Negative (Negative); THC Screen Urine Negative (Negative)
[2020-05-07] MEDS: LORazepam 2 mg/mL INJ 1 mL IM (11:19)
[2020-05-07 11:23] LABS: Lactate (Lactic Acid level) 2.4 mmol/L (0.5-2.2)
--- NOTE | 2020-05-07 11:39 | CTR_ITS ---
PROCEDURE INFORMATION: Exam: CT Angiography Chest With Contrast Exam date and time: 05/07/2020 12:21 PM Age: 55 years old Clinical indication: Shortness of breath; Patient HX: C/O SOB recent admission for covid TECHNIQUE: Imaging protocol: Computed tomographic angiography of the chest with intravenous contrast. 3D rendering (Not supervised by radiologist): MIP and/or 3D reconstructed images were created by the technologist. Radiation optimization: All CT scans at this facility use at least one of these dose optimization techniques: automated exposure control; mA and/or kV adjustment per patient size (includes targeted exams where dose is matched to clinical indication); or iterative reconstruction. Contrast material: OMNI 350; Contrast volume: 95 ml; Contrast route: INTRAVENOUS (IV); COMPARISON: CR (CHEST, ) 05/07/2020 10:04 AM RADIATION DOSE METRICS: Total DLP (mGy-cm): 562.79 FINDINGS: Pulmonary arteries: Normal. No pulmonary emboli. Aorta: Unremarkable. No aortic aneurysm. No aortic dissection. Lungs: Multifocal patchy parenchymal infiltrates consistent with atypical pneumonia. 9 mm rounded lesion in the right upper lobe series 2, image 205. Pleural space: Unremarkable. No pneumothorax. No pleural effusion. Heart: Unremarkable. No cardiomegaly. No pericardial effusion. Lymph nodes: There are subcentimeter mediastinal and perihilar lymph nodes. Bones/joints: Unremarkable. No acute fracture. Soft tissues: Unremarkable. CT/CT angio chest PE protcl [id number] IMPRESSION: 1. Bilateral atypical pneumonia. 2. There is a 9 mm noncalcified rounded lesion in the right upper lobe.For both low risk and high risk patients, consider CT Chest at 3 months, PET/CT, or biopsy. (Reference: Sinan) REFERENCES: Sinan Cornejo et al. Guidelines for Management of Incidental Pulmonary Nodules Detected on CT Images: From the Fleischner Society 2017. Radiology. 2017;284(1):228-243. Radiation Dose CTDIVOL = (mGy): DLP = 562.79 (mGy-cm)
[2020-05-07 11:59] LABS: ABG PH Result 7.46 (7.35-7.45); Alveolar-Arterial Oxygen Gradi 6.2 mmHg (5-10); Arterial Blood Gas Hematocrit 50.8 % (42-52); Base Excess ABG -0.3 mmol/L (-2.0-2.0); Blood Gas Allen Test Pos; Blood Gas Sample Type Arterial; Carboxyhemoglobin 0.9 %THgb (0.4-20.1); HCO3 ABG 22.6 mmol/L (22-26); HGB O2 Sat 92.9 % (95-100); Ionized Calcium Level - ABG 1.2 mmol/L (1.1-1.4); Methemoglobin 0.8 % (0.4-1.5); Oxygen Saturation ABG 94.5; PO2 ABG 62.8 mmHg (80.0-100.0); Total Hemoglobin 16.6 g/dL (14-18)
[2020-05-07 12:00] LABS: Blood Gas Operator Identificat ED; Blood Gas Sample Site Radial, left; Oxygen Device ROOM AIR
[2020-05-07 12:30] LABS: C Reactive Protein 1.4 mg/L (0.0-4.9)
[2020-05-07 12:49] LABS: Ferritin 1362 ng/mL (30-400)
[2020-05-07 12:50] LABS: Lactate Dehydrogenase 313 U/L (135-225)
[2020-05-07] MEDS: iohexol 350 mg/mL 100 mL Btl IV (13:34)
[2020-05-07 14:03] LABS: Erythrocyte Sedimentation Rate 5 mm/hr (0-10)
[2020-05-07] MEDS: cefTRIAXone 1,000 MG in sodium chloride 0.9% (plus) 50 ML 100 MG IV (14:49)
[2020-05-07] MEDS: azithromycin 500 MG in sodium chloride 0.9% 250 ML 250 MG IV (15:41)
[2020-05-07 15:58] VITALS: BP 148/88; PULSE 88; RESP 18; O2SAT 94
--- NOTE | 2020-05-07 15:59 | ED_ITS ---
HPI - Psych General: Chief Complaint: Psychiatric Symptoms Stated Complaint: INCOHERENT Time Seen by Provider: 05/07/20 09:32 Source: patient and family Mode of arrival: ambulatory History of Present Illness: HPI Narrative: [facility] ED PFSH: Medical History Diabetes Hyperlipidemia Hypertension Hypothyroidism (acquired) Surgical History Hx of cholecystectomy 2006 Social History Smoking and tobacco status: never smoked Alcohol intake: never Lives independently: Yes Housing: House Marital status: Single History of recent travel: No MDM - Psych Lab Data: Labs: Lab Results 05/07/20 05/07/20 05/07/20 Range/Units 09:54 09:54 09:54 WBC 14.7 H (4.0-10.0) 10^3/ uL RBC 5.73 H (4.1-5.3) 10^6/u L Hgb 16.2 (11.7-16.6) g/dL Hct 49.0 (42.0-52.0) % MCV 85.5 (80-94) fL MCH 28.3 (28.0-34.0) pg MCHC 33.1 (30.0-36.0) g/dL RDW 12.4 (12.1-15.1) % Plt Count 441 H (130-400) 10^3/c mm MPV 8.8 (7.4-10.4) fL Neut % (Auto) 69.5 % Lymph % (Auto) 15.4 % [place] % (Auto) 8.5 % Eos % (Auto) 0.4 % Baso % (Auto) 0.3 % Neut # (Auto) 10.19 H (1.8-7.7) 10^3/u L Lymph # (Auto) 2.3 (0.8-4.8) 10^3/u L [place] # (Auto) 1.2 H (0.2-0.9) 10^3/u L Eos # (Auto) 0.1 (0.0-0.8) 10^3/u L Baso # (Auto) 0.0 (0.0-0.1) 10^3/u L Nucleated RBC % (a uto) 0 % Nucleated RBCs # 0.0 /100WBC ESR 5 (0-10) mm/hr Specimen Type Sample Site ABG pH (7.35-7.45) ABG pCO2 (35-45) mmHg ABG pO2 (80.0-100.0) mmH g ABG HCO3 (22-26) mmol/L ABG O2 Saturation ABG Base Excess (-2.0-2.0) mmol/ L Roel Test A-a O2 Gradient (5-10) mmHg Hematocrit (42-52) % Hgb O2 Saturation (95-100) % Carboxyhemoglobin (0.4-20.1) %THgb Methemoglobin (0.4-1.5) % Total Hemoglobin (14-18) g/dL Ionized Calcium (1.1-1.4) mmol/L O2 Delivery Device FiO2 % Planning Associate ID Sodium 133 L (136-145) mmol/L Potassium 4.2 (3.5-5.1) mmol/L Chloride 100 (98-107) mmol/L Carbon Dioxide 23 (22-29) mmol/L Anion Gap 14.2 (5-19) BUN 27 H (6-20) mg/dL Creatinine 1.0 (0.7-1.2) mg/dL GFR Calculation 77.6 L (90-130) mL/min Glucose 174 H (65-115) mg/dL Calculated Osmolal ity 285 (285-295) mOsm/k g Lactate (0.5-2.2) mmol/L Calcium 9.2 (8.5-10.5) mg/dL Ferritin (30-400) ng/mL Total Bilirubin 0.6 (0.15-1.2) mg/dL AST 34 (0-40) U/L ALT 92 H (0-41) U/L Alkaline Phosphata se 113 (40-130) IU/L Lactate Dehydrogen ase (135-225) U/L C-Reactive Protein (0.0-4.9) mg/L Total Protein 6.4 L (6.6-8.7) g/dL Albumin 3.7 (3.5-5.2) g/dL Globulin 2.7 (1.3-4.6) g/dL Urine Color (Yellow) Urine Appearance (CLEAR) Urine pH (5-7) Ur Specific Gravit y (1.005-1.030) Urine Protein (Negative) Urine Glucose (UA) (Normal) Urine Ketones (Negative) Urine Blood (Negative) Urine Nitrate (Negative) Urine Bilirubin (Negative) Urine Urobilinogen (Negative) mg/dL Ur Leukocyte Marielos ase (Negative) Salicylates < 0.3 L (3-10) mg/dL Urine Opiates Scre en (Negative) ng/mL Acetaminophen < 5.0 L (10-30) ug/mL Ur Barbiturates Sc reen (Negative) ng/mL Ur Phencyclidine S crn (Negative) ng/mL Ur Amphetamines Sc reen (Negative) ng/mL U Benzodiazepines Scrn (Negative) ng/mL Urine Cocaine Scre en (Negative) ng/mL U Marijuana (THC) Screen (Negative) ng/mL Ethyl Alcohol < 10 (0-10) mg/dL 05/07/20 05/07/20 05/07/20 Range/Units 09:54 10:32 10:32 WBC (4.0-10.0) 10^3/ uL RBC (4.1-5.3) 10^6/u L Hgb (11.7-16.6) g/dL Hct (42.0-52.0) % MCV (80-94) fL MCH (28.0-34.0) pg MCHC (30.0-36.0) g/dL RDW (12.1-15.1) % Plt Count (130-400) 10^3/c mm MPV (7.4-10.4) fL Neut % (Auto) % Lymph % (Auto) % [place] % (Auto) % Eos % (Auto) % Baso % (Auto) % Neut # (Auto) (1.8-7.7) 10^3/u L Lymph # (Auto) (0.8-4.8) 10^3/u L [place] # (Auto) (0.2-0.9) 10^3/u L Eos # (Auto) (0.0-0.8) 10^3/u L Baso # (Auto) (0.0-0.1) 10^3/u L Nucleated RBC % (a uto) % Nucleated RBCs # /100WBC ESR (0-10) mm/hr Specimen Type Sample Site ABG pH (7.35-7.45) ABG pCO2 (35-45) mmHg ABG pO2 (80.0-100.0) mmH g ABG HCO3 (22-26) mmol/L ABG O2 Saturation ABG Base Excess (-2.0-2.0) mmol/ L Roel Test A-a O2 Gradient (5-10) mmHg Hematocrit (42-52) % Hgb O2 Saturation (95-100) % Carboxyhemoglobin (0.4-20.1) %THgb Methemoglobin (0.4-1.5) % Total Hemoglobin (14-18) g/dL Ionized Calcium (1.1-1.4) mmol/L O2 Delivery Device FiO2 % Planning Associate ID Sodium (136-145) mmol/L Potassium (3.5-5.1) mmol/L Chloride (98-107) mmol/L Carbon Dioxide (22-29) mmol/L Anion Gap (5-19) BUN (6-20) mg/dL Creatinine (0.7-1.2) mg/dL GFR Calculation (90-130) mL/min Glucose (65-115) mg/dL Calculated Osmolal ity (285-295) mOsm/k g Lactate (0.5-2.2) mmol/L Calcium (8.5-10.5) mg/dL Ferritin 1362 H (30-400) ng/mL Total Bilirubin (0.15-1.2) mg/dL AST (0-40) U/L ALT (0-41) U/L Alkaline Phosphata se (40-130) IU/L Lactate Dehydrogen ase 313 H (135-225) U/L C-Reactive Protein 1.4 (0.0-4.9) mg/L Total Protein (6.6-8.7) g/dL Albumin (3.5-5.2) g/dL Globulin (1.3-4.6) g/dL Urine Color Yellow (Yellow) Urine Appearance Clear (CLEAR) Urine pH 5 (5-7) Ur Specific Gravit y 1.025 (1.005-1.030) Urine Protein Neg (Negative) Urine Glucose (UA) Norm (Normal) Urine Ketones Negative (Negative) Urine Blood Neg (Negative) Urine Nitrate Negative (Negative) Urine Bilirubin Neg (Negative) Urine Urobilinogen Norm (Negative) mg/dL Ur Leukocyte Marielos ase Negative (Negative) Salicylates (3-10) mg/dL Urine Opiates Scre en Negative (Negative) ng/mL Acetaminophen (10-30) ug/mL Ur Barbiturates Sc reen Negative (Negative) ng/mL Ur Phencyclidine S crn Negative (Negative) ng/mL Ur Amphetamines Sc reen Negative (Negative) ng/mL U Benzodiazepines Scrn Negative (Negative) ng/mL Urine Cocaine Scre en Negative (Negative) ng/mL U Marijuana (THC) Screen Negative (Negative) ng/mL Ethyl Alcohol (0-10) mg/dL 05/07/20 05/07/20 Range/Units 10:52 11:49 WBC (4.0-10.0) 10^3/ uL RBC (4.1-5.3) 10^6/u L Hgb (11.7-16.6) g/dL Hct (42.0-52.0) % MCV (80-94) fL MCH (28.0-34.0) pg MCHC (30.0-36.0) g/dL RDW (12.1-15.1) % Plt Count (130-400) 10^3/c mm MPV (7.4-10.4) fL Neut % (Auto) % Lymph % (Auto) % [place] % (Auto) % Eos % (Auto) % Baso % (Auto) % Neut # (Auto) (1.8-7.7) 10^3/u L Lymph # (Auto) (0.8-4.8) 10^3/u L [place] # (Auto) (0.2-0.9) 10^3/u L Eos # (Auto) (0.0-0.8) 10^3/u L Baso # (Auto) (0.0-0.1) 10^3/u L Nucleated RBC % (a uto) % Nucleated RBCs # /100WBC ESR (0-10) mm/hr Specimen Type Arterial Sample Site Radial, left ABG pH 7.46 H (7.35-7.45) ABG pCO2 32.0 L (35-45) mmHg ABG pO2 62.8 L (80.0-100.0) mmH g ABG HCO3 22.6 (22-26) mmol/L ABG O2 Saturation 94.5 ABG Base Excess -0.3 (-2.0-2.0) mmol/ L Roel Test Pos A-a O2 Gradient 6.2 (5-10) mmHg Hematocrit 50.8 (42-52) % Hgb O2 Saturation 92.9 L (95-100) % Carboxyhemoglobin 0.9 (0.4-20.1) %THgb Methemoglobin 0.8 (0.4-1.5) % Total Hemoglobin 16.6 (14-18) g/dL Ionized Calcium 1.2 (1.1-1.4) mmol/L O2 Delivery Device Room air FiO2 21.0 % Planning Associate ID Ed Sodium 134.0 (136-145) mmol/L Potassium 4.0 (3.5-5.1) mmol/L Chloride (98-107) mmol/L Carbon Dioxide (22-29) mmol/L Anion Gap (5-19) BUN (6-20) mg/dL Creatinine (0.7-1.2) mg/dL GFR Calculation (90-130) mL/min Glucose 137.0 H (65-115) mg/dL Calculated Osmolal ity (285-295) mOsm/k g Lactate 2.4 H (0.5-2.2) mmol/L Calcium (8.5-10.5) mg/dL Ferritin (30-400) ng/mL Total Bilirubin (0.15-1.2) mg/dL AST (0-40) U/L ALT (0-41) U/L Alkaline Phosphata se (40-130) IU/L Lactate Dehydrogen ase (135-225) U/L C-Reactive Protein (0.0-4.9) mg/L Total Protein (6.6-8.7) g/dL Albumin (3.5-5.2) g/dL Globulin (1.3-4.6) g/dL Urine Color (Yellow) Urine Appearance (CLEAR) Urine pH (5-7) Ur Specific Gravit y (1.005-1.030) Urine Protein (Negative) Urine Glucose (UA) (Normal) Urine Ketones (Negative) Urine Blood (Negative) Urine Nitrate (Negative) Urine Bilirubin (Negative) Urine Urobilinogen (Negative) mg/dL Ur Leukocyte Marielos ase (Negative) Salicylates (3-10) mg/dL Urine Opiates Scre en (Negative) ng/mL Acetaminophen (10-30) ug/mL Ur Barbiturates Sc reen (Negative) ng/mL Ur Phencyclidine S crn (Negative) ng/mL Ur Amphetamines Sc reen (Negative) ng/mL U Benzodiazepines Scrn (Negative) ng/mL Urine Cocaine Scre en (Negative) ng/mL U Marijuana (THC) Screen (Negative) ng/mL Ethyl Alcohol (0-10) mg/dL Discharge Plan Discharge Prescriptions: No Action levothyroxine 50 mcg capsule 50 mcg PO DAILY 30 Days Qty: 30 RF: 5 losartan 50 mg tablet 50 mg PO DAILY 30 Days Qty: 30 RF: 5 metformin 500 mg tablet extended release 24 hr 1,000 mg PO DAILY 30 Days Qty: 60 RF: 5 atorvastatin 20 mg tablet 20 mg PO DAILY 30 Days Qty: 30 RF: 5 acetaminophen 500 mg tablet 500 mg PO Q6H PRN (Reason: PAIN/FEVER) RF: 0 dexamethasone 4 mg tablet 4 mg PO DAILY RF: 0 ClearLax 17 gram/dose powder See Rx Instructions .ROUTE .COMPLEX RF: 0 albuterol sulfate 90 mcg/actuation HFA aerosol inhaler 2 puff INHALATION Q1H RF: 0 fluticasone propionate 50 mcg/actuation spray,suspension See Rx Instructions .ROUTE .COMPLEX RF: 0 Levemir U-100 Insulin 100 unit/mL solution See Rx Instructions .ROUTE .COMPLEX RF: 0 Mucinex 600 mg tablet extended release 12hr 600 mg PO BID RF: 0 Coding Level of Care Code ED Nitroglycerin Supervisor for Kavin Cruz
[2020-05-07 18:03] LABS: SARS Covid-2 Antigen Negative (Negative)
--- NOTE | 2020-05-07 18:06 | PC.NURSE ---
pt report called to Ana Paula Cheema [address] 16.
[2020-05-07 19:52] LABS: Glucose Point of Care 112 mg/dL (70-110)
[2020-05-07 19:55] VITALS: BP 146/82; PULSE 90; RESP 18; O2SAT 98
== END 2020-05-07 19:56 | disposition other institution (70) ==
PROVIDERS: Registered Nurse; Emergency Provider Emergency Medicine; PCP Nurse Practitioner
DX: R41.82 Altered mental status, unspecified (principal); U07.1 COVID-19; E11.9 Type 2 diabetes mellitus without complications; Z79.4 Long term (current) use of insulin; I10 Essential (primary) hypertension; E78.5 Hyperlipidemia, unspecified
CPT/HCPCS: 12345; 36415; 36416; 36600; 70450; 71045; 71275; 80051; 80053; 80306; 80307; 81003; 82728; 82810; 82962; 83605; 83615; 83986; 85025; 85651; 86140; 87040; 87426; 96365; 96367; 96372; 96375; 99284; 99285; J0456; J0696; J2060; J7050; Q9967

== ENCOUNTER → 2020-07-25 08:51 | Outpatient (BNVA) | payer OTHER, SELFPAY | PROVIDERS: PCP Nurse Practitioner; Visit Provider Nurse Practitioner | DX: E03.9 Hypothyroidism, unspecified (principal); E11.9 Type 2 diabetes mellitus without complications; I10 Essential (primary) hypertension; E78.2 Mixed hyperlipidemia | CPT/HCPCS: 80053; 80061; 83036; 84443; 85025 ==

== ENCOUNTER → 2020-09-07 16:01 | Outpatient (BNVA) | payer OTHER, SELFPAY | PROVIDERS: PCP Nurse Practitioner; Visit Provider Nurse Practitioner | DX: E03.9 Hypothyroidism, unspecified (principal) | CPT/HCPCS: 84439; 84443; 84481 ==

== ENCOUNTER → 2020-11-21 12:02 | Outpatient (BNVA) | payer OTHER, SELFPAY | PROVIDERS: PCP Nurse Practitioner; Visit Provider Nurse Practitioner | DX: E11.65 Type 2 diabetes mellitus with hyperglycemia (principal); I10 Essential (primary) hypertension; E78.2 Mixed hyperlipidemia; E03.9 Hypothyroidism, unspecified | CPT/HCPCS: 80053; 80061; 83036; 83721; 84443 ==

== ENCOUNTER 2021-02-16 06:54 | Emergency (ER) | payer OTHER, SELFPAY ==
[2021-02-16] VITALS (7 sets, daily range): BP systolic 160–247; BP diastolic 107–120; PULSE 74–88; RESP 15–18; TEMP 36.5; O2SAT 96–98; BMI 36.4
--- NOTE | 2021-02-16 07:30 | CT_ITS ---
WS: [id number] CT ABDOMEN PELVIS TECHNIQUE: Noncontrast CT of the abdomen and pelvis with coronal and sagittal reformatted images. CLINICAL INFORMATION: right flank pain COMPARISON: None. DLP: 2408.[address] scans at [facility] use at least one of these dose optimization techniques: automat ed exposure control; mA and/or kV adjustment per patient size (includes targeted exams where dose is matched to clinical indication); or iterative reconstruction. FINDINGS: Obstructing right ureteral calculus at the right UVJ measuring 3.6 mm. Mild right hydronephrosis with mild right ureterectasis. Inflammatory stranding and edema about the right kidney and right ureter. No obstructing left renal or ureteral calculi. No hydronephrosis in the left kidney. Diffuse fatty infiltration liver. Hepatomegaly. Cholecystectomy clips. Low-attenuation lesion right h epatic lobe medially measuring 2.1 x 2.5 cm nonspecific but may represent focal fatty sparing. Cholec ystectomy clips. Slight atelectasis in the lung bases. Fatty atrophy of the pancreas. Normal noncontr ast spleen. Normal GE junction. Adrenal glands are normal. Normal caliber abdominal aorta. Normal sig moid colon. No evidence of high-grade grade small large bowel obstruction. Tiny fat-containing umbili raven hernia. No free fluid in the pelvis. Normal lumbar spine. CT/CT kidney stone 27710 IMPRESSION: 1. Obstructing right UVJ calculus measuring 3.6 mm. Mild right hydronephrosis with right ureterectasis. Inflammatory stranding and edema about the right kidn ey. 2. No obstructing left renal or ureteral calculi. 3. Diffuse fatty infiltration the liver with hepatomegaly. 4. Low-attenuation lesion in the right hepatic lobe medially may represent foc al fatty sparing but nonspecific measuring 2.5 x 2.0 CM. This could be further evaluated with ultrasound. 5. No other significant findings.
--- NOTE | 2021-02-16 07:31 | ED_ITS ---
HPI - Male Genitourinary General: Chief complaint: Urogenital-Male Stated complaint: POSS KIDNEY STONE Time Seen by Provider: 02/16/21 07:23 History of Present Illness: HPI Narrative: Patient is a 55-year-old male comes to the ED with right flank pain. Patient says he noticed on Saturday he was having some pain in his back and went to a chiropractor on Saturday and had back manipulated and did not get any relief from pain. This morning around 4:30 AM he woke up with a sharp intense pain located in the right flank. He says he took 4 ibuprofen this morning before coming to the ED. he rates his pain a 5 out of 10 currently. Past medical history of a kidney stone and says that this feels a lot like his past kidney stone. Denies any fever, chills, nausea/vomiting, abdominal pain, bladder or bowel symptoms. Associated symptoms: Deny dysuria, hematuria, nausea or vomiting Review of Systems Const: Denies: fever(s), chills or fatigue Eyes: Denies: change in vision or eye discomfort ENMT: Denies: throat pain, odynophagia, nasal discharge or nasal congestion Card: Denies: chest pain, palpitations, edema, swelling of feet/ankles, dyspnea on exertion or orthopnea Resp: Denies: dyspnea, productive cough or non-productive cough GI: Denies: abdominal pain, nausea, vomiting, diarrhea, constipation or hematochezia : Reports: flank pain (right ); Denies: difficulty urinating, dysuria or hematuria Musc: Denies: neck pain, back pain or extremity swelling Skin/Breast: Denies: rash or new lesions Neuro: Denies: headache(s), numbness in extremities or weakness in extremities [facility] ED PFSH: Medical History Diabetes mellitus with hyperglycemia History of 2019 novel coronavirus disease (COVID-19) Hyperlipidemia Hypertension Hypothyroidism (acquired) Surgical History Hx of cholecystectomy 2007 Family History Other Cancer Dementia Diabetes Denies family history of Hypertension Stroke Social History Smoking and tobacco status: never smoked Second hand smoke exposure: No Smoking risk assessment/counseling performed?: No Alcohol intake: never Desire information about alcohol rehabilitation?: No Counseling given: No Desire information about substance/drug rehabilitation?: No Counseling given: No Adopted: No Caregiver/support person: No Lives independently: Yes Household members: none Housing: House Marital status: Single Number of children: 0 Number of grandchildren: 0 service: No Current occupational status: employed Current occupation: [employer] Pets and animals: No History of recent travel: No Current gender identity: Male Physical Exam Const: COMMON NORMALS: no acute distress, patient oriented x3 and healthy appearing GENERAL APPEARANCE: cooperative and comfortable HENMT: COMMON NORMALS: normocephalic HEAD & SCALP: normocephalic MOUTH: Normal oral and palatal mucosa present THROAT: posterior oropharynx normal and uvula midline Eye: COMMON NORMALS: Equal, round and reactive pupils present PUPIL: Yes Equal, round and reactive pupils present Neck/C-Spine: COMMON NORMALS: supple GENERAL: Yes normal visual inspection Resp: COMMON NORMALS: normal respiratory effort, No retractions, No use of accessory muscles and clear to auscultation bilaterally AUSCULTATION: clear to auscultation bilaterally Cardio: COMMON NORMALS: regular rate, regular rhythm, S1 normal heart sound present, S2 normal heart sound present, No gallops present (Cardio), No clicks present (Cardio), No murmurs present (Cardio) and Peripheral pulses 2+ throughout RATE: regular rate RHYTHM: regular rhythm HEART SOUNDS: S1 normal heart sound present and S2 normal heart sound present PERIPHERAL PULSES: Peripheral pulses 2+ throughout GI: COMMON NORMALS: Normal to inspection, nondistended, normoactive bowel sounds present, Soft to palpation, non-tender and no masses PALPATION: Yes Soft to palpation : BLADDER/KIDNEY EXAM: Yes CVA tenderness on the right Back/Pelvis: GENERAL BACK: Yes CVA tenderness Extremity: COMMON NORMALS: normal to inspection Neuro: COMMON NORMALS: patient oriented x3 and moves all extremities Skin: GENERAL SKIN EXAM: dry skin Course Vital Signs: Vital signs: Vital Signs Temperature 97.7 F 02/16/21 07:09 Pulse Rate 88 02/16/21 10:36 Respiratory Rate 18 02/16/21 10:36 Blood Pressure 240/120 02/16/21 10:36 Pulse Oximetry 98 02/16/21 10:36 MDM - Male MDM Narrative: Medical decision making narrative: Patient is a 55-year-old male comes to the ED with right flank pain. He has a history of kidney stones and states that this pain feels similar to previous kidney stone. Patient appears nontoxic and in no acute distress and has some right CVA tenderness but rest of exam is benign. UA shows some blood but no signs of any infection. The rest of the labs were unremarkable. CT of abdomen showed right kidney stone measuring 3.8 mm and causing obstruction at the UVJ. I placed an order with case management patient be referred to Dr. Crane. Patient was given IV fluids, tamsulosin and Toradol here in the ED. I also gave patient his dose of losartan, since he skipped it this morning. Patient denies any neurological symptoms or headache. Patient diagnosed with kidney stone discharged home given a prescription for naproxen and hydrocodone for pain. He was told to strain his urine to catch a stone. Return to ED precautions given. Told foster care case manager will contact them the next several days set up an appointment with Dr. Crane. Patient was to agree with plan. Lab Data: Attestation: I reviewed the patient's lab results. Labs: Lab Results 02/16/21 02/16/21 02/16/21 Range/Units 07:15 07:20 07:20 WBC 9.0 (4.0-10.0) 10^3/ uL RBC 5.40 H (4.1-5.3) 10^6/u L Hgb 15.6 (11.7-16.6) g/dL Hct 46.1 (42.0-52.0) % MCV 85.4 (80-94) fL MCH 28.9 (28.0-34.0) pg MCHC 33.8 (30.0-36.0) g/dL RDW 12.4 (12.1-15.1) % Plt Count 259 (130-400) 10^3/c mm MPV 9.2 (7.4-10.4) fL Neut % (Auto) 62.4 % Lymph % (Auto) 25.9 % [place] % (Auto) 6.7 % Eos % (Auto) 2.9 % Baso % (Auto) 1.1 % Neut # (Auto) 5.63 (1.8-7.7) 10^3/u L Lymph # (Auto) 2.3 (0.8-4.8) 10^3/u L [place] # (Auto) 0.6 (0.2-0.9) 10^3/u L Eos # (Auto) 0.3 (0.0-0.8) 10^3/u L Baso # (Auto) 0.1 (0.0-0.1) 10^3/u L Nucleated RBC % (a uto) 0 % Nucleated RBCs # 0.0 /100WBC Sodium 138 (136-145) mmol/L Potassium 4.2 (3.5-5.1) mmol/L Chloride 101 (98-107) mmol/L Carbon Dioxide 24 (22-29) mmol/L Anion Gap 17.2 (5-19) BUN 21 H (6-20) mg/dL Creatinine 1.0 (0.7-1.2) mg/dL GFR Calculation 77.6 L (90-130) mL/min Glucose 215 H (65-115) mg/dL Calculated Osmolal ity 295 (285-295) mOsm/k g Calcium 9.0 (8.5-10.5) mg/dL Total Bilirubin 0.4 (0.15-1.2) mg/dL AST 46 H (0-40) U/L ALT 58 H (0-41) U/L Alkaline Phosphata se 151 H (40-130) IU/L Total Protein 7.3 (6.6-8.7) g/dL Albumin 4.3 (3.5-5.2) g/dL Globulin 3.0 (1.3-4.6) g/dL Lipase 36 (13-60) U/L Urine Color Yellow (Yellow) Urine Appearance Clear (CLEAR) Urine pH 5 (5-7) Ur Specific Gravit y 1.025 (1.005-1.030) Urine Protein Neg (Negative) Urine Glucose (UA) 2+ (Normal) Urine Ketones 1+ H (Negative) Urine Blood 3+ H (Negative) Urine Nitrate Negative (Negative) Urine Bilirubin Neg (Negative) Urine Urobilinogen Norm (Negative) mg/dL Ur Leukocyte Marielos ase Negative (Negative) Urine RBC 10-15 H (0-2) /hpf Urine WBC None (0-5) /hpf Ur Squamous Epith Cells 0-4 H (0-5) /hpf Amorphous Sediment Not Reportable Urine Bacteria Trace (NONE) /hpf Urine Mucus Trace /hpf Imaging Data: CT Abd/Pel: Attestation: I personally reviewed and interpreted this imaging study as follows: Radiologist's impression: [address] [place] [address] CT Scan Report Signed Patient: Rocky Bui Unit #: [id number] : 1965 Age/Sex: 55 / M ADM Date: 02/16/21 Loc: ER Room/Bed: Attending Dr: Ordering Provider/Ordering MD: Javid Tapia Date of Service: 02/16/21 Procedure(s): CT kidney stone 28079 Accession Number(s): [id number] Report Number: [id number] WS: [id number] CT ABDOMEN PELVIS TECHNIQUE: Noncontrast CT of the abdomen and pelvis with coronal and sagittal reformatted images. CLINICAL INFORMATION: right flank pain COMPARISON: None. DLP: 2408.[address] scans at [facility] use at least one of these dose optimization techniques: automated exposure control; mA and/or kV adjustment per patient size (includes targeted exams where dose is matched to clinical indication); or iterative reconstruction. FINDINGS: Obstructing right ureteral calculus at the right UVJ measuring 3.6 mm. Mild right hydronephrosis with mild right ureterectasis. Inflammatory stranding and edema about the right kidney and right ureter. No obstructing left renal or ureteral calculi. No hydronephrosis in the left kidney. Diffuse fatty infiltration liver. Hepatomegaly. Cholecystectomy clips. Low- attenuation lesion right hepatic lobe medially measuring 2.1 x 2.5 cm nonspecific but may represent focal fatty sparing. Cholecystectomy clips. Slight atelectasis in the lung bases. Fatty atrophy of the pancreas. Normal noncontrast spleen. Normal GE junction. Adrenal glands are normal. Normal caliber abdominal aorta. Normal sigmoid colon. No evidence of high-grade grade small large bowel obstruction. Tiny fat- containing umbilical hernia. No free fluid in the pelvis. Normal lumbar spine. CT/CT kidney stone [id number] IMPRESSION: 1. Obstructing right UVJ calculus measuring 3.6 mm. Mild right hydronephrosis with right ureterectasis. Inflammatory stranding and edema about the right kidney. 2. No obstructing left renal or ureteral calculi. 3. Diffuse fatty infiltration the liver with hepatomegaly. 4. Low-attenuation lesion in the right hepatic lobe medially may represent focal fatty sparing but nonspecific measuring 2.5 x 2.0 CM. This could be further evaluated with ultrasound. 5. No other significant findings. Dictated By: Sav Hargrove MD Signed By: Sav Hargrove MD Signed Date/Time: 02/16/21 1004 DD/ [id number] Discharge Plan Discharge Patient Disposition: Home Clinical Impression: Kidney stone on right side Condition: Stable Prescriptions: New naproxen 500 mg tablet 500 mg PO BID PRN (Reason: pain) Qty: 10 RF: 0 tamsulosin 0.4 mg capsule 0.4 mg PO DAILY Qty: 14 RF: 0 No Action Ozempic 0.25 mg or 0.5 mg(2 mg/1.5 mL) pen injector 0.25 mg SUBCUT .weekly Qty: 1.5 RF: 0 metformin 500 mg tablet extended release 24 hr 1,000 mg PO DAILY 30 Days Qty: 60 RF: 2 losartan 100 mg tablet 100 mg PO DAILY 30 Days Qty: 30 RF: 2 atorvastatin 40 mg tablet 40 mg PO DAILY 30 Days Qty: 30 RF: 2 levothyroxine [Synthroid] 100 mcg tablet 100 mcg PO DAILY Qty: 30 RF: 2 acetaminophen 500 mg tablet 500 mg PO Q6H PRN (Reason: PAIN/FEVER) RF: 0 fluticasone propionate 50 mcg/actuation spray,suspension See Rx Instructions .ROUTE .COMPLEX RF: 0 Discharge Orders: Discharge ED (Routine); Ordered 02/16/21 Ordered By: Javid Tapia Referrals: Ulysses Morataya, [facility] [Primary Care Provider] - Discharge Diet: Regular Discharge Activity: Resume usual activity Patient Instructions: Kidney Stones (ED), How to Strain Your Urine (ED), Opioid Safety Activity Restrictions/Additional Instructions: Follow-up with medical provider as directed. Case management should be contacting you in the next several days to set up an appointment with Dr. Crane the urologist. Strain urine to catch stone and drink lots of fluid to stay hydrated and help pass stone. Take medications as prescribed. You can take ibuprofen or Aleve for any pain or fevers. Return to the ER or your medical provider if condition worsens. Please read and understand discharge instructions. If any questions, please ask. Coding Level of Care Code ED Operations/Dispatch for Kavin Fwd Exam Comprehensive
[2021-02-16 07:34] LABS: Bilirubin Urine Neg (Negative); Blood Urine 3+ (Negative); Glucose Urine UA 2+ (Normal); Ketones Urine 1+ (Negative); Leukocyte Esterase Urine Negative (Negative); Nitrate Urine Negative (Negative); Protein Urine Neg (Negative); Specific Gravity, Urine 1.025 (1.005-1.030); Squamous Epithelial Cell Urine 0-4 /hpf (0-5); Urine Appearance Clear (CLEAR); Urine Color Yellow (Yellow); Urobilinogen Urine Norm (Negative); pH Urine 5 (5-7)
[2021-02-16 07:35] LABS: Add Urine Culture? No; Bacteria Urine TRACE /hpf; Mucus Urine TRACE /hpf
[2021-02-16 07:38] LABS: Basophils # 0.1 10^3/uL (0.0-0.1); Basophils % 1.1 %; Eosinophils # 0.3 10^3/uL (0.0-0.8); Eosinophils % 2.9 %; Hematocrit 46.1 % (42.0-52.0); Hemoglobin 15.6 g/dL (11.7-16.6); Lymphocytes # 2.3 10^3/uL (0.8-4.8); Lymphocytes % 25.9 %; Mean Corpuscular HGB Conc 33.8 g/dL (30.0-36.0); Mean Corpuscular Hemoglobin 28.9 pg (28.0-34.0); Mean Corpuscular Volume 85.4 fL (80-94); Mean Platelet Volume 9.2 fL (7.4-10.4); Monocytes # 0.6 10^3/uL (0.2-0.9); Monocytes % 6.7 %; Neutrophils # 5.63 10^3/uL (1.8-7.7); Neutrophils % 62.4 %; Nucleated Red Blood Cells % 0 %; Platelet Count 259 10^3/cmm (130-400); Red Cell Distribution Width 12.4 % (12.1-15.1)
[2021-02-16] MEDS: sodium chloride 0.9% 500 ML 999 ML IV (07:43)
[2021-02-16 07:49] LABS: Alanine Aminotransferase 58 U/L (0-41); Albumin Level 4.3 g/dL (3.5-5.2); Alkaline Phosphatase 151 IU/L (40-130); Anion Gap 17.2 (5-19); Aspartate Amino Transferase 46 U/L (0-40); Blood Urea Nitrogen 21 mg/dL (6-20); Carbon Dioxide 24 mmol/L (22-29); Chloride 101 mmol/L (98-107); Glomerular Filtration Rate 77.6 mL/min (90-130); Glucose 215 mg/dL (65-115); Lipase 36 U/L (13-60); Osmolality Calculated 295 mOsm/kg (285-295); Potassium 4.2 mmol/L (3.5-5.1); Sodium 138 mmol/L (136-145); Total Bilirubin 0.4 mg/dL (0.15-1.2); Total Protein 7.3 g/dL (6.6-8.7)
[2021-02-16] MEDS: ketorolac 30 mg/mL INJ IVP (10:30)
[2021-02-16] MEDS: tamsulosin 0.4 mg Capsule PO (10:30)
[2021-02-16] MEDS: losartan 50 mg Tablet 100 MG PO (10:30)
--- NOTE | 2021-02-17 09:24 | DCPLANNER ---
nursing agency manager had message to schedule a follow up appointment for patient with Dr. Crane. nursing agency manager called the office of Dr. Crane, spoke with Shanta, gave clinic patients information. nursing agency manager was told that patients information would be printed and reviewed. Clinic will call patient with appointment information.
--- NOTE | 2021-02-17 09:26 | DCPLANNER ---
manager data had message to schedule a follow up appointment for patient with Dr. Crane for kidney stone. manager data called the ortho clinic, spoke with Starla, gave clinic patients information. manager data was told that patients information would be printed and reviewed. Clinic will call patient with appointment information.
--- NOTE | 2021-02-22 11:26 | DCPLANNER ---
Patient has a follow up appointment scheduled for , February 23, 2021 at 3:[address] Crane. Clinic will call patient with appointment information.
--- NOTE | 2021-03-24 13:43 | DCPLANNER ---
Patient had a follow up appointment scheduled for 02.23.[address] Crane - patient did attend appointment.
== END 2021-02-16 10:36 | disposition home or self-care (01) ==
PROVIDERS: Family Medicine; Emergency Provider Physician Assistant; PCP Nurse Practitioner
DX: N20.0 Calculus of kidney (principal); Z79.84 Long term (current) use of oral hypoglycemic drugs; E11.9 Type 2 diabetes mellitus without complications; E78.5 Hyperlipidemia, unspecified; I10 Essential (primary) hypertension
CPT/HCPCS: 74176; 80053; 81001; 83690; 85025; 96361; 96374; 99284; J1885; J7040

== ENCOUNTER 2021-02-23 14:19 | Outpatient (CLI) | payer OTHER, SELFPAY ==
--- NOTE | 2021-02-23 14:30 | XR_ITS ---
WS: [id number] KUB, AP view, 02/23/2021 Clinical Data: kidney stone Comparison: CT abdomen and pelvis, 02/23/2021 Findings: No abnormal intraabdominal masses or calcifications are seen. There is no dilatated small bowel or ev idence of obstruction. The distal right ureterovesical junction calculus is not visible. There are clips in the right upper quadrant from a cholecystectomy. Fecal material and colon gas obscure detail over both kidneys. XR/XR KUB [id number] Impression: Negative KUB.
== END 2021-02-23 14:20 | disposition home or self-care (01) ==
LOC: RAD 14:20
PROVIDERS: PCP Nurse Practitioner; Visit Provider Urology
DX: N20.0 Calculus of kidney (principal)
CPT/HCPCS: 74018; 81003

== ENCOUNTER → 2021-03-03 09:06 | Outpatient (BNVA) | payer OTHER, SELFPAY | PROVIDERS: PCP Nurse Practitioner; Visit Provider Nurse Practitioner | DX: E11.65 Type 2 diabetes mellitus with hyperglycemia (principal); E78.2 Mixed hyperlipidemia; I10 Essential (primary) hypertension; E03.9 Hypothyroidism, unspecified | CPT/HCPCS: 82043 ==

== ENCOUNTER → 2021-03-07 10:54 | Outpatient (BNVA) | payer OTHER, SELFPAY | PROVIDERS: PCP Nurse Practitioner; Visit Provider Nurse Practitioner | DX: E11.65 Type 2 diabetes mellitus with hyperglycemia (principal) | CPT/HCPCS: 83036 ==

== ENCOUNTER → 2021-07-18 10:49 | Outpatient (BNVA) | payer SELFPAY | PROVIDERS: PCP Nurse Practitioner; Visit Provider Dermatology | DX: Z01.89 Encounter for other specified special examinations (principal) ==

== ENCOUNTER → 2021-10-30 08:17 | Outpatient (BNVA) | payer OTHER, SELFPAY | PROVIDERS: PCP Family Medicine; Visit Provider Family Medicine | DX: E11.65 Type 2 diabetes mellitus with hyperglycemia (principal) | CPT/HCPCS: 80053; 80061; 82043; 83036; 84443 ==

== ENCOUNTER → 2022-01-16 12:43 | Outpatient (BNVA) | payer SELFPAY | PROVIDERS: PCP Family Medicine; Visit Provider Dermatology | DX: Z01.89 Encounter for other specified special examinations (principal) ==

== ENCOUNTER 2022-03-08 14:33 | Emergency (ER) | payer OTHER, SELFPAY ==
[2022-03-08 14:40] VITALS: BP 119/69; PULSE 66; RESP 19; TEMP 36.5; O2SAT 94; BMI 30.5
--- NOTE | 2022-03-08 14:47 | XR_ITS ---
WS: [id number] Portable AP upright chest, 03/08/2022 Clinical Data: syncope Comparison: Portable chest, 05/07/2020. Findings: No nodules, masses or effusions are seen. The heart is normal. The pulmonary vascularity is not increased. No pneumonia or pneumothorax is seen. Monitor leads are on the chest wall. XR/XR chest 1V portable [id number] Impression: Negative chest.
--- NOTE | 2022-03-08 14:48 | W.ED.SYNCOPE ---
HPI - Syncope General: Chief Complaint: Syncope Stated Complaint: SYNCOPE X 2 Time Seen by Provider: 03/08/22 14:37 Source: patient and EMS Mode of arrival: EMS Limitations: no limitations History of Present Illness: Patient is a nice 56-year-old male with a history of diabetes and hypothyroidism here via EMS for complaints of a syncopal episode. 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 Patient states the next thing he knew he was being woke up from his coworker stating that he had passed out. Patient denies any chest pain, shortness of breath, difficulty breathing, palpitations. EMS states by the time they arrived patient seemed to be almost back to his baseline. Patient's vital signs were stable in route to the ED. During my initial assessment patient tells me that he feels normal now. He has no previous history of syncopal episodes. Patient states he has not had any recent illness. He states he has not had any notable exercise intolerance. Patient does state in the board meeting they were discussing a lot of pressing issues that the patient states would have added more stress to him and he was feeling anxious regarding this. Blood glucose in route was 130s. complaint: loss of consciousness Onset (ago): minute(s) -: second(s) Prodromal symptoms: lightheaded and diaphoresis Witnessed: Yes - by Bystander Context: at rest Injuries sustained associated with event: none Associated symptoms: Deny abdominal pain, chest pain, fever(s), headache(s), lightheadedness, nausea or vertigo Review of Systems Const: Reports: diaphoresis (prior to syncopal episode; resolved now); Denies: fever(s), chills, body aches, fatigue or malaise Eyes: Denies: change in vision or blurry vision Card: Reports: syncope; Denies: chest pain, palpitations, irregular heart rhythm, edema, swelling of feet/ankles, lightheadedness, dyspnea on exertion, orthopnea, leg pain with exertion or acrocyanosis Resp: Denies: dyspnea, productive cough, non-productive cough, wheezing, pain on inspiration, hemoptysis or chest congestion GI: Denies: abdominal pain, nausea, vomiting, heartburn or diarrhea : Denies: difficulty urinating or dysuria Musc: Denies: neck pain, back pain, extremity pain or joint pain Skin/Breast: Denies: rash Neuro: Reports: dizziness (prior to syncopal episode-resolved now); Denies: headache(s), numbness in extremities, weakness in extremities, sensory changes, lack of coordination, difficulty walking, frequent falls, vertigo, confusion, behavioral changes, Slurred speech present, difficulty communicating thoughts, seizure-like activity or involuntary movements PFSH ED PFSH: Medical History Diabetes mellitus with hyperglycemia History of 2019 novel coronavirus disease (COVID-19) Hyperlipidemia Hypertension Hypothyroidism (acquired) Right ureteral stone Surgical History Hx of cholecystectomy 2007 Family History Other Cancer Dementia Diabetes Denies family history of Hypertension Stroke Social History Smoking and tobacco status: never smoked Second hand smoke exposure: No Smoking risk assessment/counseling performed?: No Alcohol intake: never Desire information about alcohol rehabilitation?: No Counseling given: No Desire information about substance/drug rehabilitation?: No Counseling given: No Adopted: No Caregiver/support person: No Lives independently: Yes Household members: none Housing: House Marital status: Single Number of children: 0 Number of grandchildren: 0 service: No Current occupational status: employed Current occupation: [employer] Pets and animals: No History of recent travel: No Current gender identity: Male Physical Exam Const: COMMON NORMALS: no acute distress, average body habitus, patient oriented x3, no limitations, healthy appearing, alert and well nourished GENERAL APPEARANCE: cooperative ORIENTATION/CONSCIOUSNESS: Yes awake, Yes oriented to person, Yes oriented to place and Yes oriented to time HENMT: COMMON NORMALS: normocephalic and atraumatic HEAD & SCALP: normal to inspection, normocephalic and atraumatic Eye: GENERAL EYE: appearance normal, both eyes and all related structures and normal light reflex DIRECT OPHTHALMOSCOPY: Yes normal light reflex Neck/C-Spine: COMMON NORMALS: full ROM, no lymphadenopathy and no meningeal signs GENERAL: Yes normal visual inspection CERVICAL SPINE: Yes cervical ROM normal, No pain with cervical ROM and No Cervical spine tenderness Resp: COMMON NORMALS: normal respiratory effort and clear to auscultation bilaterally AUSCULTATION: clear to auscultation bilaterally Cardio: COMMON NORMALS: regular rate and regular rhythm RATE: regular rate RHYTHM: regular rhythm GI: COMMON NORMALS: Normal to inspection, nondistended, normoactive bowel sounds present, Soft to palpation and non-tender PALPATION: Yes Soft to palpation Back/Pelvis: COMMON NORMALS: thoracic and lumbar spine normal to inspection, no thoracic nor lumbar tenderness and thoraco-lumbar ROM normal Extremity: COMMON NORMALS: normal to inspection GENERAL: Yes normal exam except as noted Neuro: SHORTY COMA SCALE: document GCS findings [place] coma scale eye opening: Spontaneous [place] coma scale verbal response: Orientated [place] coma scale motor response: Obey commands [place] coma scale total score: 15 COMMON NORMALS: patient oriented x3, CN's II-XII intact bilaterally, moves all extremities, no focal motor deficits and no sensory deficits noted SENSORIUM/ORIENTATION: Yes alert, Yes oriented to person, Yes oriented to place and Yes oriented to time MENINGEAL SIGNS: Yes no meningeal signs SPEECH: speech normal GAIT: Yes Normal gait present MOTOR EXAM: 5/5 motor strength present throughout Skin: COMMON NORMALS: no rashes or lesions noted GENERAL SKIN EXAM: no rashes or lesions noted TRAUMA: no lacerations or abrasions Course Vital Signs: Vital signs: Vital Signs Temperature 97.7 F 03/08/22 14:40 Pulse Rate 66 03/08/22 14:40 Respiratory Rate 19 H 03/08/22 14:40 Blood Pressure 119/69 03/08/22 14:40 Pulse Oximetry 94 03/08/22 14:40 Oxygen Delivery Me thod 03/08/22 14:40 MDM - Syncope Medical Decision Making Patient states he has felt normal since arrival. His vital signs are normal. Orthostatics are negative. Patient was ambulatory here in the emergency department without complaints of lightheadedness, dizziness, palpitations. Patient states he is normally very active and has not been experiencing any episodes of exercise intolerance or exertional chest pains. Patient's ED work-up benign. He does state he was feeling anxious during the meeting due to issues being discussed. Certainly this could be vasovagal syncope. At this time I think patient is stable for DC from an emergency standpoint. Recommend follow-up with PCP as soon as possible for reevaluation. Strict return ED precautions given regarding tomorrow and into the weekend. Lab Data : 03/08/22 15:08 03/08/22 15:08 Radiology Impressions Chest X-Ray 03/08/22 14:47 Impression: Negative chest. Laboratory Results WBC 11.8 10^3/uL (4.0-10.0) H 03/08/22 15:08 RBC 5.46 10^6/uL (4.1-5.3) H 03/08/22 15:08 Hgb 15.7 g/dL (11.7-16.6) 03/08/22 15:08 Hct 48.4 % (42.0-52.0) 03/08/22 15:08 MCV 88.6 fl (80-94) 03/08/22 15:08 MCH 28.8 pg (28.0-34.0) 03/08/22 15:08 MCHC 32.4 g/dL (30.0-36.0) 03/08/22 15:08 RDW 12.4 % (12.1-15.1) 03/08/22 15:08 Plt Count 248 10^3/cmm (130-400) 03/08/22 15:08 MPV 9.4 fL (7.4-10.4) 03/08/22 15:08 Neut % (Auto) 77.4 % 03/08/22 15:08 Lymph % (Auto) 17.4 % 03/08/22 15:08 Bacon % (Auto) 3.6 % 03/08/22 15:08 Eos % (Auto) 0.8 % 03/08/22 15:08 Baso % (Auto) 0.5 % 03/08/22 15:08 Neut # (Auto) 9.15 10^3/uL (1.8-7.7) H 03/08/22 15:08 Lymph # (Auto) 2.1 10^3/uL (0.8-4.8) 03/08/22 15:08 Bacon # (Auto) 0.4 10^3/uL (0.2-0.9) 03/08/22 15:08 Eos # (Auto) 0.1 10^3/uL (0.0-0.8) 03/08/22 15:08 Baso # (Auto) 0.1 10^3/uL (0.0-0.1) 03/08/22 15:08 Nucleated RBC % (auto) 0 % 03/08/22 15:08 Nucleated RBCs # 0.0 /100WBC 03/08/22 15:08 Sodium 139 mmol/L (136-145) 03/08/22 15:08 Potassium 4.2 mmol/L (3.5-5.1) 03/08/22 15:08 Chloride 107 mmol/L (98-107) 03/08/22 15:08 Carbon Dioxide 20 mmol/L (22-29) L 03/08/22 15:08 Anion Gap 16.2 (5-19) 03/08/22 15:08 BUN 22 mg/dL (6-20) H 03/08/22 15:08 Creatinine 1.0 mg/dL (0.7-1.2) 03/08/22 15:08 GFR Calculation 77.3 mL/min (90-130) L 03/08/22 15:08 Glucose 143 mg/dL (65-115) H 03/08/22 15:08 Calculated Osmolality 294 mOsm/kg (285-295) 03/08/22 15:08 Calcium 9.0 mg/dL (8.5-10.5) 03/08/22 15:08 Total Bilirubin 0.5 mg/dL (0.15-1.2) 03/08/22 15:08 AST 22 U/L (0-40) 03/08/22 15:08 ALT 27 U/L (0-41) 03/08/22 15:08 Alkaline Phosphatase 119 IU/L (40-130) 03/08/22 15:08 Troponin T Baseline 6 ng/L (0-15) 03/08/22 15:08 Total Protein 6.6 g/dL (6.6-8.7) 03/08/22 15:08 Albumin 4.1 g/dL (3.5-5.2) 03/08/22 15:08 Globulin 2.5 g/dL (1.3-4.6) 03/08/22 15:08 Discharge Plan Discharge Patient Disposition: Home Clinical Impression: Episode of syncope Qualifiers: Encounter type: initial encounter Condition: Stable Prescriptions: No Action (DME) lancets [OneTouch Delica Plus Lancet] 33 gauge misc See Rx Instructions .Route Qty: 100 0RF Rx Instructions: 1 day (DME) OneTouch Ultra Test Strip See Rx Instructions .Route Qty: 50 5RF Rx Instructions: use 1 day (DME) blood-glucose meter [OneTouch Ultra2 Meter] Kit See Rx Instructions .Route Qty: 1 0RF Rx Instructions: As directed atorvastatin 40 mg tablet 40 mg PO DAILY 90 Days Qty: 90 3RF losartan 100 mg tablet 100 mg PO DAILY 90 Days Qty: 90 3RF metformin 500 mg tablet extended release 24 hr 1,000 mg PO DAILY 90 Days Qty: 180 3RF levothyroxine [Synthroid] 100 mcg tablet 100 mcg PO DAILY Qty: 90 3RF Rx Instructions: 340B Plan. Must get name brand krill oil 500 mg capsule 500 mg PO DAILY Trulicity 1.5 mg/0.5 mL pen injector See Rx Instructions .ROUTE .COMPLEX Qty: 2 3RF Dose Instruction: INJECT CONTENTS OF ONE PEN (1.5 MG) UNDER SKIN WEEKLY Rx Instructions: INJECT CONTENTS OF ONE PEN (1.5 MG) UNDER SKIN WEEKLY ON THURSDAYS acetaminophen 500 mg tablet 500 mg PO Q6H PRN (Reason: PAIN/FEVER) fluticasone propionate 50 mcg/actuation spray,suspension 2 spray intranasal DAILY PRN (Reason: Nasal Congestion) doxylamine succinate 25 mg Tablet 25 mg PO Q6H PRN (Reason: Allergy Symptoms) Discharge Orders: Discharge ED (Routine); Ordered 03/08/22 Ordered By: Sharmila Keen Referrals: Marisa Hardy MD [Primary Care Provider] - Patient Instructions: Syncope (DC) Coding Level of Care Code ED 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
--- NOTE | 2022-03-08 15:00 | ECG_ITS ---
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 Measurements Intervals Lindsay Rate: 62 P: 45 NE: 201 QRS: -8 QRSD: 102 T: -1 QT: 435 QTc: 444 Interpretive Statements SINUS RHYTHM LOW QRS VOLTAGE IN PRECORDIAL LEADS [QRS DEFLECTION < 1.0 mV IN CHEST LEADS] No previous ECG available for comparison Electronically Signed On 03-09-2022 12:49:42 CDT by Karoline Quezada M.D. [id number]
[2022-03-08] MEDS: sodium chloride 0.9% 1,000 ML 999 ML IV (15:06)
[2022-03-08 15:15] LABS: Basophils # 0.1 10^3/uL (0.0-0.1); Basophils % 0.5 %; Eosinophils # 0.1 10^3/uL (0.0-0.8); Eosinophils % 0.8 %; Hematocrit 48.4 % (42.0-52.0); Hemoglobin 15.7 g/dL (11.7-16.6); Lymphocytes # 2.1 10^3/uL (0.8-4.8); Lymphocytes % 17.4 %; Mean Corpuscular HGB Conc 32.4 g/dL (30.0-36.0); Mean Corpuscular Hemoglobin 28.8 pg (28.0-34.0); Mean Corpuscular Volume 88.6 fl (80-94); Mean Platelet Volume 9.4 fL (7.4-10.4); Monocytes # 0.4 10^3/uL (0.2-0.9); Monocytes % 3.6 %; Neutrophils # 9.15 10^3/uL (1.8-7.7); Neutrophils % 77.4 %; Nucleated Red Blood Cells % 0 %; Platelet Count 248 10^3/cmm (130-400); Red Blood Count 5.46 10^6/uL (4.1-5.3); Red Cell Distribution Width 12.4 % (12.1-15.1); White Blood Count 11.8 10^3/uL (4.0-10.0)
[2022-03-08 15:41] LABS: Alanine Aminotransferase 27 U/L (0-41); Albumin Level 4.1 g/dL (3.5-5.2); Alkaline Phosphatase 119 IU/L (40-130); Aspartate Amino Transferase 22 U/L (0-40); Blood Urea Nitrogen 22 mg/dL (6-20); Carbon Dioxide 20 mmol/L (22-29); Chloride 107 mmol/L (98-107); Globulin 2.5 g/dL (1.3-4.6); Glomerular Filtration Rate 77.3 mL/min (90-130); Glucose 143 mg/dL (65-115); Osmolality Calculated 294 mOsm/kg (285-295); Sodium 139 mmol/L (136-145); Total Bilirubin 0.5 mg/dL (0.15-1.2); Total Protein 6.6 g/dL (6.6-8.7)
[2022-03-08 15:45] LABS: Troponin(5th) Baseline 6 ng/L (0-15)
[2022-03-08 15:51] VITALS: BP 144/88; PULSE 73; RESP 16; O2SAT 99
[2022-03-08 15:56] LABS: Anion Gap 16.2 (5-19); Potassium 4.2 mmol/L (3.5-5.1)
[2022-03-08 16:38] VITALS: BP 122/85; PULSE 74; RESP 18; O2SAT 97
== END 2022-03-08 16:41 | disposition home or self-care (01) ==
PROVIDERS: Emergency Provider Physician Assistant; PCP Family Medicine
DX: R55 Syncope and collapse (principal); Z79.84 Long term (current) use of oral hypoglycemic drugs; E11.9 Type 2 diabetes mellitus without complications; E78.5 Hyperlipidemia, unspecified; I10 Essential (primary) hypertension
CPT/HCPCS: 71045; 80053; 84484; 85025; 93005; 96360; 99285; J7030

== ENCOUNTER → 2022-08-20 09:54 | Outpatient (BNVA) | payer OTHER, SELFPAY | PROVIDERS: PCP Family Medicine; Visit Provider Family Medicine | DX: E03.9 Hypothyroidism, unspecified (principal); E11.65 Type 2 diabetes mellitus with hyperglycemia; E78.2 Mixed hyperlipidemia; I10 Essential (primary) hypertension | CPT/HCPCS: 80053; 80061; 83036; 84443; 85025; G0103 ==

== ENCOUNTER → 2023-02-20 10:00 | Outpatient (BNVA) | payer OTHER, SELFPAY | PROVIDERS: PCP Family Medicine; Visit Provider Family Medicine | DX: E11.65 Type 2 diabetes mellitus with hyperglycemia (principal); E03.9 Hypothyroidism, unspecified; I10 Essential (primary) hypertension; E78.5 Hyperlipidemia, unspecified; Z12.5 Encounter for screening for malignant neoplasm of prostate; E78.2 Mixed hyperlipidemia | CPT/HCPCS: 80053; 80061; 83036; 84443; 85025; G0103 ==

== ENCOUNTER → 2024-03-30 16:37 | Outpatient (BNVA) | payer BC, SELFPAY | PROVIDERS: PCP Family Medicine; Visit Provider Family Medicine | DX: I10 Essential (primary) hypertension (principal); E11.65 Type 2 diabetes mellitus with hyperglycemia; E03.9 Hypothyroidism, unspecified; E78.2 Mixed hyperlipidemia | CPT/HCPCS: 80053; 80061; 83036; 83721; 84443; 85025 ==

== ENCOUNTER → 2024-04-08 16:07 | Outpatient (BNVA) | payer BC, SELFPAY | PROVIDERS: PCP Family Medicine; Visit Provider Family Medicine | DX: E03.9 Hypothyroidism, unspecified (principal) | CPT/HCPCS: 84439; 84443; 84481 ==

== ENCOUNTER → 2024-10-26 09:55 | Outpatient (BNVA) | payer BC, SELFPAY | PROVIDERS: PCP Family Medicine; Visit Provider Clinical Nurse Specialist Adult Health | DX: I10 Essential (primary) hypertension (principal); E78.2 Mixed hyperlipidemia; E11.65 Type 2 diabetes mellitus with hyperglycemia; E11.8 Type 2 diabetes mellitus with unspecified complications; Z12.5 Encounter for screening for malignant neoplasm of prostate | CPT/HCPCS: 80053; 80061; 82043; 83036; 83721; 84153; 84443; 85025 ==

== ENCOUNTER 2024-12-29 09:06 | Day surgery (SDC) | payer BC, SELFPAY ==
[2024-12-29 09:24] VITALS: BP 170/96; PULSE 71; RESP 18; TEMP 36.2; O2SAT 97
[2024-12-29 09:25] VITALS: BMI 35.4
[2024-12-29] MEDS: sodium chloride 0.9% 1,000 ML 15 ML IV (09:37)
[2024-12-29 09:39] LABS: Glucose Point of Care 258 mg/dL (70-110)
--- NOTE | 2024-12-29 10:00 | ANES.PREANE2 ---
Pre-Anesthetic Assessment Height/Weight: Height 1.75 m Weight 108.862 kg Temp Pulse Resp BP Pulse Ox O2 Del Method 97.1 F L 71 18 170/96 97 Room Air 12/29/24 09:24 12/29/24 09:24 12/29/24 09:24 12/29/24 09:24 12/29/24 09:24 12/29/24 09:24 Preop Diagnosis: Screening Operation Date: 12/29/24 10:30 Proposed Procedures p Colonoscopy 06572 G0121 Z12.11(Not Applicable) - Joaquin Holman MD Was Beta Roderick taken within 24 hours: Yes Was Clonidine taken within 24 hours: N/A Last intake: Intake Last Liquid Date 12/28/24 Last Liquid Time 23:30 Last Solid Date 12/27/24 Social No alcohol and No tobacco Exam alert, oriented x 3, clear to auscultation bilaterally and regular rate & rhythm Airway Submandibular: within normal limits Cervical ROM: within normal limits Mallampati: Class II Dentition: full History/ROS No significant history except as noted and No significant complaints Pulmonary None reported CV/HEM Hypertension Chronic Renal Insufficiency Hepatic None reported GI None reported Metabolic Diabetes Mellitus and Thyroid Disease [facility] [place] None reported Neuropsych None reported Anesthetic Plan ASA status: 3 Anesthesia: Anesthesia Evaluation and MAC Risk of > 500 ml blood loss (7ml/kg in children): No Medications/Allergies Home Medications ?Medication ?Instructions ?Recorded ?Confirmed ?Last Taken ?Type blood-glucose meter (INMANTouch #1 ea 05/22/21 12/24/24 Unknown Rx Ultra2 Meter kit) krill oil 500 mg capsule 500 mg PO DAILY 01/16/22 12/24/24 12/27/24 History fluticasone propionate 50 2 spray intranasal DAILY PRN Nasal 02/20/23 12/24/24 12/27/24 Rx mcg/actuation nasal Congestion #16 grams spray,suspension blood sugar diagnostic (INMANTouch #50 ea 03/30/24 12/24/24 Unknown Rx Ultra Test strips) lancets 33 gauge (INMANTouch Delica #100 ea 03/30/24 12/24/24 Unknown Rx Plus Lancet) cetirizine 10 mg tablet (All Day 10 mg PO DAILY PRN Allergy Symptoms 10/26/24 12/24/24 12/27/24 History Allergy (cetirizine)) atorvastatin 20 mg tablet (Lipitor) 20 mg PO DAILY #30 tabs 11/02/24 12/24/24 12/27/24 Rx losartan 100 mg tablet 100 mg PO DAILY 30 days #30 tabs 11/02/24 12/24/24 12/27/24 Rx metformin 500 mg tablet,extended 1,000 mg (2 x 500 mg) PO DAILY #60 11/02/24 12/24/24 12/27/24 Rx release 24 hr tabs dulaglutide 3 mg/0.5 mL 3 mg SUBCUT .WEEKLY 12/24/24 12/24/24 12/18/24 History subcutaneous pen injector Allergies Allergy/AdvReac Type Severity Reaction Status Date / Time morphine Allergy Intermediate ADR-Nausea Verified 12/29/24 09:24 Current Medications Generic Name Dose Route Start Last Admin Trade Name Freq PRN Reason Stop Dose Admin Sodium Chloride 1,000 mls @ 15 mls/hr 12/29/24 09:14 12/29/24 09:37 Sodium Chloride 0.9% IV 12/30/24 09:13 15 mls/hr .Q24H PRN Administration COLONOSCOPY FLUIDS PFSH Anesthesia Medical History CKD stage 2 due to type 2 diabetes mellitus Right ureteral stone Diabetes mellitus with hyperglycemia History of 2019 novel coronavirus disease (COVID-19) Hypothyroidism (acquired) Hypertension Hyperlipidemia Surgical History Hx of cholecystectomy 2007 Family History Other Cancer Dementia Diabetes Denies family history of Hypertension Stroke Social History Smoking and tobacco/nicotine status: never used tobacco/nicotine Second hand smoke exposure: No Alcohol intake: never Substance/Drug Use: never Adopted: No Caregiver/support person: No Lives independently: Yes Household members: none Housing: House Marital status: Single Number of children: 0 Number of grandchildren: 0 service: No Current occupational status: employed Current occupation: [employer] Pets and animals: No Current gender identity: Male
--- NOTE | 2024-12-29 10:18 | W.PM.OPSUD ---
Surgery/Procedure H&P Update DATE OF PROCEDURE: December 29, 2024 DATE H&P PERFORMED: 12/21/24 H&P UPDATE INFORMATION: I have reviewed H&P completed within last 30 days, I have examined patient prior to procedure and No changes to prior documentation PREOP DIAGNOSIS: Screening PLANNED PROCEDURE: Operation Date: 12/29/24 10:30 Proposed Procedures p Colonoscopy 16135 G0121 Z12.11(Not Applicable) - Joaquin Holman MD
[2024-12-29 11:06] VITALS: BP 91/53; PULSE 63; RESP 18; TEMP 36.6; O2SAT 92
[2024-12-29 11:16] VITALS: BP 93/54; PULSE 63; RESP 18; O2SAT 94
[2024-12-29 11:26] VITALS: BP 115/72; PULSE 62; RESP 18; O2SAT 97
--- NOTE | 2024-12-29 11:35 | ANE.PACU2 ---
Inpatient post-anesthesia follow up: Airway intact: Yes Vital signs: Temperature 97.8 F Pulse Rate 62 Respiratory Rate 18 Blood Pressure 115/72 Pulse Oximetry 97 Oxygen Delivery Me thod Room Air Oxygen Flow Rate Fraction of Inspir ed Oxygen Hydration adequate: Yes Nausea and vomiting: No Pain level: 1 Mental status: Baseline
== END 2024-12-29 11:38 | disposition home or self-care (01) ==
PROVIDERS: PCP Clinical Nurse Specialist Adult Health; Visit Provider Student in an Organized Health Care Education/Training Program
PROC: 0DJD8ZZ Inspection of Lower Intestinal Tract, Via Natural or Artificial Opening Endoscopic (ICD-10-PCS; CPT 45378; principal; 2024-12-29 10:30)
DX: Z12.11 Encounter for screening for malignant neoplasm of colon (principal); D12.0 Benign neoplasm of cecum; D12.2 Benign neoplasm of ascending colon; I12.9 Hypertensive chronic kidney disease with stage 1 through stage 4 chronic kidney disease, or unspecified chronic kidney disease; N18.2 Chronic kidney disease, stage 2 (mild); E03.9 Hypothyroidism, unspecified; E78.5 Hyperlipidemia, unspecified; E11.22 Type 2 diabetes mellitus with diabetic chronic kidney disease; Z79.899 Other long term (current) drug therapy; Z79.84 Long term (current) use of oral hypoglycemic drugs; Z79.85 Long-term (current) use of injectable non-insulin antidiabetic drugs; Z88.5 Allergy status to narcotic agent
CPT/HCPCS: 36416; 45380; 45385; 82962; 88305; J2704; J7030